=== PATIENT | male | born 1995 | race Caucasian/White ===

== ENCOUNTER 2017-06-21 20:54 | Emergency (ER) | payer SELFPAY ==
[2017-06-21 21:04] VITALS: RESP 18
--- NOTE | 2017-06-21 21:34 | ED ---
General Adult HPI - General Chief complaint: Recheck/Abnormal Lab/Rx Stated complaint: rib pain Time Seen by Provider: 06/21/17 21:24 Source: patient Mode of arrival: ambulatory Limitations: no limitations - History of Present Illness Initial comments: 21-year-old male patient presented to emergency room in [place] [facility] complains of left rib pain and cough. Patient states that he has had a cough since last Tuesday. States that he was coughing up some white sputum. States that the rib pain also started on Tuesday. States that the pain is worse when he takes a deep breath, moves, or presses on the area. He states at rest the pain has lessened but does not completely go away. He denies any fever, chills, chest pain, shortness of breath, abdominal pain, nausea, vomiting, constipation, diarrhea, hematuria, dysuria, urinary urgency or frequency. Denies any rib injury or trauma. - Related Data Previous Rx's Medication Instructions Recorded Benzonatate [Tessalon Perles] 100 mg PO TID PRN #15 cap 06/21/17 Ibuprofen [Motrin] 600 mg PO Q6HR PRN #20 tab 06/21/17 Allergies Allergy/AdvReac Type Severity Reaction Status Date / Time No Known Allergies Allergy Verified 06/21/17 21:50 Review of Systems ROS Statement: Those systems with pertinent positive or pertinent negative responses have been documented in the HPI. ROS Other: All systems not noted in ROS Statement are negative. Past Medical History Past Medical History: No Reported History Additional Past Medical History / Comment(s): seizure x1 after taking drugs in 2012. no follow up History of Any Multi-Drug Resistant Organisms: None Reported Past Surgical History: Appendectomy, Orthopedic Surgery Additional Past Surgical History / Comment(s): rt hand 2013 Past Anesthesia/Blood Transfusion Reactions: No Reported Reaction Past Psychological History: No Psychological Hx Reported Smoking Status: Current every day smoker Past Alcohol Use History: Occasional Past Drug Use History: None Reported - Past Family History Mother Family Medical History: No Reported History General Exam Limitations: no limitations General appearance: alert, in no apparent distress Head exam: Present: atraumatic, normocephalic, normal inspection Eye exam: Present: normal appearance, PERRL, EOMI. Absent: scleral icterus, conjunctival injection, periorbital swelling ENT exam: Present: normal exam, mucous membranes moist Neck exam: Present: normal inspection. Absent: tenderness, meningismus, lymphadenopathy Respiratory exam: Present: normal lung sounds bilaterally, chest wall tenderness (Over the seventh and eighth ribs at the costo chondral angle.). Absent: respiratory distress, wheezes, rales, rhonchi, stridor, accessory muscle use Cardiovascular Exam: Present: regular rate, normal rhythm, normal heart sounds. Absent: systolic murmur, diastolic murmur, rubs, gallop, clicks GI/Abdominal exam: Present: soft, normal bowel sounds. Absent: distended, tenderness, guarding, rebound, rigid, organomegaly, mass Extremities exam: Present: normal inspection, full ROM, normal capillary refill. Absent: tenderness, pedal edema, joint swelling, calf tenderness Back exam: Present: normal inspection Neurological exam: Present: alert, oriented X3, CN II-XII intact Psychiatric exam: Present: normal affect, normal mood Skin exam: Present: warm, dry, intact, normal color, other (Superficial scratch- like abrasions noted over chest wall.). Absent: rash Course Vital Signs 06/21/17 21:01 Temperature 96.3 F L Pulse Rate 75 Respiratory 18 Rate Blood Pressure 138/84 O2 Sat by Pulse 99 Oximetry Medical Decision Making - Medical Decision Making 21-year-old male patient presents to emergency department today for complaints of left lower rib pain and tenderness as well as cough. There is no injury however due to the cough chest x-ray was obtained and showed no acute cardiopulmonary process and no displaced rib fractures. This all at this time pain is costochondral in nature. Patient will be given a prescriptive or ibuprofen for the pain. He will also be given an antitussive for the cough. Patient instructed to follow up this primary care physician a 1-2 days for recheck. Instructed to return for any new, worsening, or concerning symptoms. - Radiology Data Radiology results: report reviewed, image reviewed X-ray ribs with PA chest x-ray shows no focal airspace opacity, pleural effusion , or pneumothorax. The cardiac silhouette size is within normal limits. No displaced wrist fracture. The osseous structures are intact. Impression by Dr. Cooney shows no acute cardiopulmonary process. No displaced fractures. Disposition Clinical Impression: Rib pain, Costochondritis Disposition: HOME SELF-CARE Condition: Good Instructions: Costochondritis (ED) Additional Instructions: Use ibuprofen for pain control. Apply heat or ice to the area as is comfortable. Take urtication for cough. Follow up with primary care physician 1-2 days for recheck. Return for any new, worsening, or concerning symptoms. Prescriptions: Benzonatate [Tessalon Perles] 100 mg PO TID PRN #15 cap PRN Reason: Cough Ibuprofen [Motrin] 600 mg PO Q6HR PRN #20 tab PRN Reason: Pain Referrals: None,Stated [Primary Care Provider] - 1-2 days Time of Disposition: 22:01
--- NOTE | 2017-06-21 21:56 | XR ---
EXAMINATION TYPE: XR ribs LT w pa chest xray DATE OF EXAM: 06/21/2017 CLINICAL HISTORY: Left rib pain. TECHNIQUE: Single frontal view of the chest is obtained. 2 views of the left ribs were also obtained. COMPARISON: None FINDINGS: There is no focal air space opacity, pleural effusion, or pneumothorax seen. The cardiac silhouette size is within normal limits. No displaced rib fracture. The osseous structures are intac t. IMPRESSION: No acute cardiopulmonary process. No displaced rib fracture.
[2017-06-21 22:10] VITALS: BP 122/70; PULSE 82; TEMP 96.8
== END 2017-06-21 22:14 | disposition home or self-care (01) ==
LOC: EC 20:54
DX: M94.0 Chondrocostal junction syndrome [Tietze] (principal); S20.319A Abrasion of unspecified front wall of thorax, initial encounter; F17.200 Nicotine dependence, unspecified, uncomplicated
CPT/HCPCS: 99283

== ENCOUNTER 2017-08-02 02:23 | Emergency (ER) | payer OTHER ==
[2017-08-02 02:29] VITALS: BP 140/83; PULSE 53; RESP 18; TEMP 97
--- NOTE | 2017-08-02 02:50 | ED ---
Upper Extremity HPI - General Chief Complaint: Extremity Injury, Upper Stated Complaint: shoulder pain Time Seen by Provider: 08/02/17 02:35 Source: patient, RN notes reviewed Mode of arrival: ambulatory Limitations: no limitations - History of Present Illness Initial Comments: This a 21-year-old male presents emergency Department chief complaint right shoulder pain. 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 Patient states that he's had increased pain since last night after lifting his parts. Patient states that he has pain when he tries looked up his right shoulder. He states he feels clicking and popping. Patient denies any paresthesias. Patient is right-hand dominant and said no prior injuries to his right shoulder. - Related Data Previous Rx's Medication Instructions Recorded Ibuprofen [Motrin] 600 mg PO Q8HR PRN #30 tab 08/02/17 Allergies Allergy/AdvReac Type Severity Reaction Status Date / Time No Known Allergies Allergy Verified 08/02/17 02:30 Review of Systems ROS Statement: Those systems with pertinent positive or pertinent negative responses have been documented in the HPI. ROS Other: All systems not noted in ROS Statement are negative. Past Medical History Past Medical History: No Reported History Additional Past Medical History / Comment(s): seizure x1 after taking drugs in 2012. no follow up History of Any Multi-Drug Resistant Organisms: None Reported Past Surgical History: Appendectomy, Orthopedic Surgery Additional Past Surgical History / Comment(s): rt hand 2013 Past Anesthesia/Blood Transfusion Reactions: No Reported Reaction Past Psychological History: ADD/ADHD, Bipolar, Depression Smoking Status: Current every day smoker Past Alcohol Use History: Occasional Past Drug Use History: None Reported - Past Family History Mother Family Medical History: No Reported History General Exam Limitations: no limitations General appearance: alert, in no apparent distress Respiratory exam: Present: normal lung sounds bilaterally. Absent: respiratory distress, wheezes, rales, rhonchi, stridor Cardiovascular Exam: Present: regular rate, normal rhythm, normal heart sounds. Absent: systolic murmur, diastolic murmur, rubs, gallop, clicks Extremities exam: Present: other (Right shoulder pain with flexion, Maxalt rotation, abduction there is no specific point tenderness. Generalized tenderness of the right shoulder patient's [employer] senior [employer] strength and strength of his right elbow and wrist within normal limits.) Neurological exam: Present: reflexes normal. Absent: motor sensory deficit Skin exam: Present: warm, dry, intact, normal color. Absent: rash Course Vital Signs 08/02/17 02:25 Temperature 97 F L Pulse Rate 53 L Respiratory 18 Rate Blood Pressure 140/83 O2 Sat by Pulse 100 Oximetry Medical Decision Making - Medical Decision Making 21-year-old male presented for right shoulder pain. Patient is right shoulder strain. He'll be prescribed ibuprofen and follow-up with his workman's comp facility. Disposition Clinical Impression: Strain of shoulder Disposition: HOME SELF-CARE Condition: Stable Instructions: Shoulder Sprain (ED) Additional Instructions: Please return to the Emergency Department if symptoms worsen or any other concerns. Prescriptions: Ibuprofen [Motrin] 600 mg PO Q8HR PRN #30 tab PRN Reason: Pain Referrals: None,Stated [Primary Care Provider] - 1-2 days Time of Disposition: 03:09
--- NOTE | 2017-08-02 02:55 | XR ---
EXAM: XR Right Shoulder Complete, 2 or More Views CLINICAL HISTORY: Reason: Pain TECHNIQUE: Two or more views of the right shoulder. COMPARISON: No relevant prior studies available. FINDINGS: Bones/joints: Unremarkable. No acute fracture. No dislocation. Soft tissues: Unremarkable. IMPRESSION: Normal right shoulder x-rays.
== END 2017-08-02 03:19 | disposition home or self-care (01) ==
LOC: EC 02:23
DX: S46.911A Strain of unspecified muscle, fascia and tendon at shoulder and upper arm level, right arm, initial encounter (principal); F17.200 Nicotine dependence, unspecified, uncomplicated; X50.3XXA Overexertion from repetitive movements, initial encounter; Y93.89 Activity, other specified; Y92.69 Other specified industrial and construction area as the place of occurrence of the external cause; Y99.0 Civilian activity done for income or pay
CPT/HCPCS: 99283

== ENCOUNTER → 2017-08-23 | Outpatient (CLI) | payer OTHER ==
--- NOTE | 2017-08-23 14:49 | MR ---
EXAMINATION TYPE: MR shoulder RT wo con DATE OF EXAM: 08/23/2017 2:10 PM COMPARISON: NONE HISTORY: sprain of rt shoulder TECHNIQUE: Multiplanar multispin echo imaging of the right shoulder was performed. FINDINGS: Rotator cuff : There is mild increased signal involving the supraspinatus tendon compatible with mild tendinopathy. There is no evidence for partial or complete tear. Remaining constituents of the rotat or cuff are intact. Bursa: No bursal effusion or thickening is seen. Musculature: There is no muscular tear, contusion, or atrophy. Acromioclavicular joint : Mild lateral downsloping of the chromium with small subacromial spur and mi ld early impingement suggested. Osseous structures : There are no fractures or regions of abnormal bone marrow signal intensity. Long biceps tendon : The biceps tendon is normally situated within the bicipital groove. No complete or partial biceps tendon tear is present. Glenohumeral Joint fluid : There is no glenohumeral joint effusion. Cartilage and Bone : No focal hyaline cartilage defects are noted. No Hill-Sachs, reverse Hill-Sachs, or bony Bankart lesions are seen. Labrum : There are no SLAP or soft tissue Bankart lesions. No paralabral cysts are seen. OTHER FINDINGS : none IMPRESSION: 1. Mild supraspinatus tendinopathy without evidence for partial or complete tear.
== END ==
LOC: RADMRIMAIN 12:45
PROVIDERS: ATTEND Emergency Medicine
DX: M75.91 Shoulder lesion, unspecified, right shoulder (principal)

== ENCOUNTER 2018-02-18 16:27 | Emergency (ER) | payer OTHER ==
[2018-02-18 16:31] VITALS: RESP 18
--- NOTE | 2018-02-18 17:45 | US ---
EXAMINATION TYPE: US scrotum with doppler. Grayscale and color Doppler Duplex imaging performed of t helen scrotum. DATE OF EXAM: 02/18/2018 COMPARISON: NONE CLINICAL HISTORY: Pain. Edema right testicle for 1 year, gradually getting larger. Intermittent right testicle pain EXAM MEASUREMENTS: TESTICLES: Right Testicle: 5.3 x 2.6 x 4.3 cm Left Testicle: 4.7 x 2.0 x 3.3 cm EPIDIDYMIS HEAD: Right Epididymis: 1.2 cm Left Epididymis: 1.2 cm Doppler performed to assess for testicular vascularity; good bilateral color flow and waveforms are s een. There is no evidence of testicular torsion. Presence of hydroceles: fluid collection lateral to right testicle = 4.3cm and medial to left testic le = 1.9cm cystic area right epididymis = 0.6cm There is a 6 mm simple-appearing epididymal cyst on the right. Comparison views to recommend that rosamaria dy show no suspicious skin thickening. IMPRESSION: Small to moderate size right scrotal fluid collection or hydrocele lateral to the testicl e identified on the images saved.
[2018-02-18 18:14] LABS: Appearance,Urine Clear (Clear); Bilirubin,Urine Negative (Negative); Blood,Urine Negative (Negative); Color,Urine Yellow; Glucose,Urine (UA) Negative (Negative); Ketones,Urine Negative (Negative); Leukocyte Esterase,Urine Negative (Negative); Nitrite,Urine Negative (Negative); PH, Urine 6.5 (5.0-8.0); Protein,Urine Trace (Negative); Specific Gravity,Urine 1.021 (1.001-1.035)
--- NOTE | 2018-02-18 19:25 | ED ---
General Adult HPI - General Chief complaint: Urogenital Stated complaint: Swollen testicle Time Seen by Provider: 02/18/18 17:36 Source: patient, RN notes reviewed Mode of arrival: ambulatory Limitations: no limitations - History of Present Illness Initial comments: 22-year-old male presents to the emergency department for a chief complaint of right testicular enlargement. Patient states this has been going on for over a year. Patient states it is really painful. Patient has not seen anyone else for this. Patient has not tried any thing to help with this. He states he is not sure what makes it better or worse. Patient states he has slight right- sided abdominal pain about once a week lasting for only minutes. Patient is currently asymptomatic and has no pain. Patient denies any fevers. Patient denies possibility of STD. Patient denies any urinary symptoms such as burning with urination. Patient denies any other general symptoms. - Related Data Previous Rx's Medication Instructions Recorded Ibuprofen [Motrin] 600 mg PO Q8HR PRN #30 tab 08/02/17 Allergies Allergy/AdvReac Type Severity Reaction Status Date / Time No Known Allergies Allergy Verified 02/18/18 16:31 Review of Systems ROS Statement: Those systems with pertinent positive or pertinent negative responses have been documented in the HPI. ROS Other: All systems not noted in ROS Statement are negative. Past Medical History Past Medical History: No Reported History Additional Past Medical History / Comment(s): seizure x1 after taking drugs in 2012. no follow up History of Any Multi-Drug Resistant Organisms: None Reported Past Surgical History: Appendectomy, Orthopedic Surgery Additional Past Surgical History / Comment(s): rt hand 2013 Past Anesthesia/Blood Transfusion Reactions: No Reported Reaction Past Psychological History: ADD/ADHD, Bipolar, Depression Smoking Status: Current every day smoker Past Alcohol Use History: Rare Past Drug Use History: None Reported - Past Family History Mother Family Medical History: No Reported History General Exam Limitations: no limitations Respiratory exam: Present: normal lung sounds bilaterally. Absent: respiratory distress, wheezes, rales, rhonchi, stridor Cardiovascular Exam: Present: regular rate, normal rhythm, normal heart sounds. Absent: systolic murmur, diastolic murmur, rubs, gallop, clicks GI/Abdominal exam: Present: soft, normal bowel sounds. Absent: distended, tenderness, guarding, rebound, rigid exam: Present: scrotal swelling (Right scrotum is very mildly enlarged. No redness, tenderness, or pitting edema. Testicle is mobile.). Absent: testicular tenderness, urethral discharge, vertical testicular lie Course Vital Signs 02/18/18 02/18/18 16:28 19:29 Temperature 97.6 F 98.2 F Pulse Rate 69 82 Respiratory 18 18 Rate Blood Pressure 153/83 134/80 O2 Sat by Pulse 98 98 Oximetry Medical Decision Making - Medical Decision Making 22-year-old male presents to the emergency department for a chief complaint of testicular enlargement on the right side. Patient states this has been going on for a year. Patient denies any pain currently. Patient states he rarely gets any pain in his abdomen. Patient denies any urinary symptoms or possibility of STD. Scrotal ultrasound shows a small to moderate-sized right scrotal fluid collection or hydrocele lateral to the testicle. Urinalysis was negative. Gonorrhea, chlamydia, and urine culture was sent. Patient was informed he may get a call about this. Patient is to follow up with urologist Dr. Estrada on Tuesday for follow-up studies. This was discussed with him and he agrees to follow up with him. He is to return to the emergency department if he begins to develop any worsening symptoms or abdominal pain. - Lab Data Lab Results 02/18/18 Range/Units 17:52 Urine Color Yellow Urine Appearance Clear (Clear) Urine pH 6.5 (5.0-8.0) Ur Specific [place] 1.021 (1.001-1.035) Urine Protein Trace H (Negative) Urine Glucose (UA) Negative (Negative) Urine Ketones Negative (Negative) Urine Blood Negative (Negative) Urine Nitrite Negative (Negative) Urine Bilirubin Negative (Negative) Urine Urobilinogen 2.0 (<2.0) mg/dL Ur Leukocyte Esterase Negative (Negative) Disposition Clinical Impression: Hydrocele Disposition: HOME SELF-CARE Condition: Good Instructions: Hydrocele (ED) Additional Instructions: Please follow up with urologist in one to 2 days. Please return to the emergency department if symptoms worsen. Referrals: None,Stated [Primary Care Provider] - 1-2 days Tae Cardona MD [STAFF PHYSICIAN] - 1-2 days Time of Disposition: 19:25
[2018-02-18 19:30] VITALS: BP 134/80; PULSE 82; TEMP 98.2
[2018-02-20 15:46] LABS: C. trachomatis,PCR Negative (Neg,Equiv); Chlamydia trachomatis Source Urine
[2018-02-20 15:47] LABS: N. gonorrhoeae,PCR Negative (Neg,Equiv); Neisseria Source Urine
== END 2018-02-18 19:29 | disposition home or self-care (01) ==
LOC: EC 16:27
DX: N43.3 Hydrocele, unspecified (principal); F17.200 Nicotine dependence, unspecified, uncomplicated; Z90.49 Acquired absence of other specified parts of digestive tract
CPT/HCPCS: 76870; 81003; 87086; 87491; 87591; 93975; 99284

== ENCOUNTER 2018-03-12 23:04 | Emergency (ER) | payer OTHER ==
[2018-03-12 23:09] VITALS: RESP 18
[2018-03-12] MEDS ORDERED: KETOROLAC 30 MG/ML 1 ML VIAL IVP STA (23:55)
[2018-03-12] MEDS ORDERED: METOCLOPRAMIDE 5 MG/ML 2 ML VIAL IVP STA (23:55)
[2018-03-12] MEDS ORDERED: diphenhydrAMINE 50 MG/ML 1 ML VIAL IVP STA (23:55)
[2018-03-12] MEDS ORDERED: SODIUM CHLORIDE 0.9% 1,000 ML IV STA (23:55)
--- NOTE | 2018-03-12 23:58 | ED ---
Headache HPI - General Chief Complaint: Headache Stated Complaint: head injury Time Seen by Provider: 03/12/18 23:47 Source: patient, RN notes reviewed Mode of arrival: ambulatory Limitations: no limitations - History of Present Illness Initial Comments: This is a 22-year-old male who presents to the emergency department with chief complaint of headache. Patient states he believes he may have a concussion. He states that 2 days ago he slipped and fell and hit his forehead on his car. He denies passing out. He states that he got up off the ground and immediately felt lightheaded. He states that he also developed a generalized headache that is sharp and throbbing in nature. He also admits to associated nausea. He states that he has been taking Motrin at home with minimal relief. He denies fevers or chills, chest pain or shortness of breath, vomiting, diarrhea or constipation, numbness or tingling. He states that he feels like his eyes are sensitive to light but denies any vision changes. - Related Data Previous Rx's Medication Instructions Recorded Ibuprofen [Motrin] 600 mg PO Q8HR PRN #30 tab 08/02/17 Allergies Allergy/AdvReac Type Severity Reaction Status Date / Time No Known Allergies Allergy Verified 03/12/18 23:09 Review of Systems ROS Statement: Those systems with pertinent positive or pertinent negative responses have been documented in the HPI. ROS Other: All systems not noted in ROS Statement are negative. Past Medical History Past Medical History: No Reported History Additional Past Medical History / Comment(s): seizure x1 after taking drugs in 2013. no follow up History of Any Multi-Drug Resistant Organisms: None Reported Past Surgical History: Appendectomy, Orthopedic Surgery Additional Past Surgical History / Comment(s): rt hand 2013 Past Anesthesia/Blood Transfusion Reactions: No Reported Reaction Past Psychological History: ADD/ADHD, Bipolar, Depression Smoking Status: Current every day smoker Past Alcohol Use History: Occasional Past Drug Use History: None Reported - Past Family History Mother Family Medical History: No Reported History General Exam - General Exam Comments Initial Comments: General: Awake and alert, well-developed; in no apparent distress. Girlfriend is at bedside. Lying comfortably on ED stretcher wearing his sunglasses. HEENT: Head atraumatic, normocephalic. Small contusion noted at mid superior forehead. Pupils are equal, round and reactive to light. Extraocular movements intact. Oropharynx moist without erythema or exudate. Neck: Supple. Normal ROM. Cardiovascular: Regular rate and rhythm. No murmurs, rubs or gallops. Chest symmetrical. Respiratory: Lungs clear to auscultation bilaterally. No wheezes, rales or rhonchi. Normal respiratory effort with no use of accessory muscles. Musculoskeletal: Normal ROM, no tenderness bilateral upper and lower extremities. Ambulating normally. Skin: [place], warm and dry without rashes or lesions. Neurological: Alert and oriented x3. CN II-XII grossly intact. Speech is fluent and answers are appropriate. No focal neuro deficits. Rapid alternating movements normal. Finger-nose testing normal. Heel to toe gait is normal. Romberg negative. Psychiatric: Normal mood and affect. No overt signs of depression or anxiety noted. Limitations: no limitations Course Vital Signs 03/12/18 23:07 Temperature 98.3 F Pulse Rate 61 Respiratory 18 Rate Blood Pressure 124/74 O2 Sat by Pulse 99 Oximetry Medical Decision Making - Medical Decision Making This is a 22-year-old male who presented to the emergency department for evaluation of headache. Patient was concerned for concussion as he slipped and fell 2 days ago and hit his forehead on his car. Computed tomography scan was obtained and revealed no acute abnormalities. Patient was given IV fluids and headache cocktail. On reexamination, patient states that his symptoms have improved. Vital signs are stable and he is in no acute distress. He will be discharged home at this time. Return parameters were discussed. Recommended following up with primary care provider within 1-2 days. Patient is in agreement with plan and voices understanding. All questions were answered. - Radiology Data Radiology results: report reviewed CT brain without contrast conclusion: Negative computed tomography scan of the brain. There is clearing right maxillary sinusitis compared to old exam. Disposition Clinical Impression: Headache Disposition: HOME SELF-CARE Condition: Good Instructions: Acute Headache (ED), Head Injury (ED) Additional Instructions: Please follow up with primary care provider within 1-2 days. Return to emergency department if symptoms should worsen or any concerns arise. Is patient prescribed a controlled substance at d/c from ED?: No Referrals: None,Stated [Primary Care Provider] - 1-2 days Saul Jensen MD [STAFF PHYSICIAN] - 1-2 days Time of Disposition: 01:02
--- NOTE | 2018-03-13 00:50 | CT ---
EXAMINATION TYPE: CT brain wo con DATE OF EXAM: 03/13/2018 COMPARISON: 09/06/2013 HISTORY: Headache, dizziness CT DLP: 1103.20 mGycm. Automated Exposure Control for Dose Reduction was Utilized. TECHNIQUE: CT scan of the head is performed without contrast. FINDINGS: Ventricles and sulci appear normal. There is no mass effect nor midline shift. There is no sign of intracranial hemorrhage. The calvarium is intact. Sinuses appear normal. The remainder of exa m is unremarkable. CONCLUSION: Negative CT scan of the brain. There is clearing of right maxillary sinusitis compared to old exam.
[2018-03-13 01:09] VITALS: BP 130/80; PULSE 71; TEMP 98.6
== END 2018-03-13 01:09 | disposition home or self-care (01) ==
LOC: EC 23:04
DX: S00.83XA Contusion of other part of head, initial encounter (principal); F17.200 Nicotine dependence, unspecified, uncomplicated; W01.198A Fall on same level from slipping, tripping and stumbling with subsequent striking against other object, initial encounter
CPT/HCPCS: 70450; 99284; 96374; 96375 ×2; 96361; J1200; J2765; J1885

== ENCOUNTER 2018-03-16 04:51 | Emergency (ER) | payer OTHER ==
[2018-03-16 05:07] VITALS: TEMP 97
[2018-03-16] MEDS ORDERED: ACETAMINOPHEN IV (For NPO) 1,000 MG in EMPTY BAG 1 BAG IVPB ONE (05:26)
[2018-03-16] MEDS ORDERED: METOCLOPRAMIDE 5 MG/ML 2 ML VIAL IVP STA (05:26)
[2018-03-16] MEDS ORDERED: SODIUM CHLORIDE 0.9% 1,000 ML IV STA (05:27)
--- NOTE | 2018-03-16 05:29 | ED ---
General Adult HPI - General Chief complaint: Headache Stated complaint: Headache Time Seen by Provider: 03/16/18 05:18 Source: patient, RN notes reviewed Mode of arrival: ambulatory Limitations: no limitations - History of Present Illness Initial comments: Patient is a pleasant 22-year-old male presenting to the emergency Department with headache. Patient dates he tripped and struck his head on his car approximately 6 days ago. Patient has had headaches since that time. Patient has had nausea and some dry heaves. Patient has photophobia and phonophobia. No history of chronic headaches. Patient was in the ER several days ago however has continued symptoms. - Related Data Previous Rx's Medication Instructions Recorded Ibuprofen [Motrin] 600 mg PO Q8HR PRN #30 tab 08/02/17 Allergies Allergy/AdvReac Type Severity Reaction Status Date / Time No Known Allergies Allergy Verified 03/12/18 23:09 Review of Systems ROS Statement: Those systems with pertinent positive or pertinent negative responses have been documented in the HPI. ROS Other: All systems not noted in ROS Statement are negative. Constitutional: Denies: fever Eyes: Denies: eye pain ENT: Denies: ear pain Respiratory: Denies: cough Cardiovascular: Denies: chest pain Endocrine: Denies: fatigue Gastrointestinal: Reports: nausea. Denies: abdominal pain Genitourinary: Denies: dysuria Musculoskeletal: Denies: back pain Skin: Denies: rash Neurological: Reports: headache. Denies: weakness Past Medical History Past Medical History: No Reported History Additional Past Medical History / Comment(s): seizure x1 after taking drugs in 2012. no follow up History of Any Multi-Drug Resistant Organisms: None Reported Past Surgical History: Appendectomy, Orthopedic Surgery Additional Past Surgical History / Comment(s): rt hand 2013 Past Anesthesia/Blood Transfusion Reactions: No Reported Reaction Past Psychological History: ADD/ADHD, Anxiety, Bipolar, Depression Smoking Status: Current every day smoker Past Alcohol Use History: Occasional Past Drug Use History: None Reported - Past Family History Mother Family Medical History: No Reported History General Exam Limitations: no limitations General appearance: alert, in no apparent distress Head exam: Present: atraumatic Eye exam: Present: normal appearance, PERRL, EOMI. Absent: nystagmus ENT exam: Present: normal oropharynx Neck exam: Present: normal inspection. Absent: tenderness Respiratory exam: Present: normal lung sounds bilaterally Cardiovascular Exam: Present: regular rate, normal rhythm GI/Abdominal exam: Present: soft. Absent: tenderness Extremities exam: Present: normal inspection Neurological exam: Present: alert, CN II-XII intact. Absent: motor sensory deficit Expanded Neurological exam: Present: protecting the airway Cranial nerves: EOM's Intact: Normal, Facial Sensation: Normal Sensory exam: Upper Extremity Light Touch: Normal, Lower Extremity Light Touch: Normal Motor strength exam: RUE: 5, LUE: 5, RLE: 5, LLE: 5 Eye Response: (4) open spontaneously Motor Response: (6) obeys commands Verbal Response: (5) oriented Psychiatric exam: Present: normal affect, normal mood Skin exam: Present: normal color Course Vital Signs 03/16/18 03/16/18 05:04 06:26 Temperature 97.0 F L Pulse Rate 62 62 Respiratory 16 16 Rate Blood Pressure 151/94 100/55 O2 Sat by Pulse 100 99 Oximetry Medical Decision Making - Medical Decision Making Patient reevaluated and resting comfortably in bed. Patient is sleeping and easily arousable. Patient updated on results and need for follow-up. - Radiology Data Radiology results: report reviewed (Computed tomography scan the brain reveals no acute process) Disposition Clinical Impression: Postconcussion syndrome Disposition: HOME SELF-CARE Condition: Stable Instructions: Acute Headache (ED), Concussion (ED) Additional Instructions: please follow-up with primary care physician as well as neurologist in the next day or 2 for recheck. Return for weakness, change in mental status, fevers, worsening symptoms or other concerns. Is patient prescribed a controlled substance at d/c from ED?: No Referrals: July Kahn MD [STAFF PHYSICIAN] - 1-2 days Yusra Varghese MD [REFERRING] - 1-2 days Time of Disposition: 06:54
--- NOTE | 2018-03-16 06:14 | CT ---
EXAM: CT Head Without Intravenous Contrast CLINICAL HISTORY: trauma TECHNIQUE: Axial computed tomography images of the head/brain without intravenous contrast. DLP is 1072.30 mGy-cm. This CT exam was performed using one or more of the following dose reduction techniques: automated exposure control, adjustment of the mA and/or kV according to patient size, and/or use of iterative reconstruction technique. COMPARISON: 03/13/18 FINDINGS: Brain: No hemorrhage. No mass effect. Moore white junction preserved. Ventricles: Age appropriate Bones/joints: No skull fracture. Sinuses: Well aerated as visualized. Mastoid air cells: Well aerated as visualized. IMPRESSION: No acute intracranial findings
[2018-03-16 06:59] VITALS: BP 109/71; PULSE 49; RESP 17
== END 2018-03-16 07:06 | disposition home or self-care (01) ==
LOC: EC 04:51
DX: F07.81 Postconcussional syndrome (principal); R11.2 Nausea with vomiting, unspecified; F17.200 Nicotine dependence, unspecified, uncomplicated; W18.49XA Other slipping, tripping and stumbling without falling, initial encounter
CPT/HCPCS: 99284; 96365; 96375; 70450; J2765; J0131

== ENCOUNTER 2018-07-04 07:08 | Emergency (ER) | payer OTHER ==
[2018-07-04 07:28] VITALS: BP 137/91; PULSE 67; RESP 16; TEMP 98.3
--- NOTE | 2018-07-04 07:40 | ED ---
Lower Extremity Injury HPI - General Chief Complaint: Extremity Injury, Lower Stated Complaint: Foot pain/swelling Time Seen by Provider: 07/04/18 07:30 Source: patient, RN notes reviewed Mode of arrival: ambulatory Limitations: no limitations - History of Present Illness Initial Comments: 22-year-old male presents emergency Department chief complaint of right foot pain. Patient states he remembers bumping on something at work states that he worked a shift and was more painful when he got home. Patient pressed on his foot on the lateral aspect and felt pain. Patient states he feels that there is a bump. Patient denies any numbness or tingling no prior fractures. Denies any ankle pain. Denies any bruising or swelling. - Related Data Previous Rx's Medication Instructions Recorded RX: Ibuprofen [Motrin] 600 mg PO Q8HR PRN #30 tab 08/02/17 RX: Ibuprofen [Motrin] 600 mg PO Q8HR PRN #30 tab 07/04/18 Allergies Allergy/AdvReac Type Severity Reaction Status Date / Time red 40 Allergy Anaphylaxis Uncoded 07/04/18 07:29 Review of Systems ROS Statement: Those systems with pertinent positive or pertinent negative responses have been documented in the HPI. ROS Other: All systems not noted in ROS Statement are negative. Past Medical History Past Medical History: No Reported History Additional Past Medical History / Comment(s): seizure x1 after taking drugs in 2012. no follow up History of Any Multi-Drug Resistant Organisms: None Reported Past Surgical History: Appendectomy, Orthopedic Surgery Additional Past Surgical History / Comment(s): rt hand 2013 Past Anesthesia/Blood Transfusion Reactions: No Reported Reaction Past Psychological History: ADD/ADHD, Anxiety, Bipolar, Depression, Schizophrenia Smoking Status: Current every day smoker Past Alcohol Use History: Occasional Past Drug Use History: None Reported - Past Family History Mother Family Medical History: No Reported History General Exam Limitations: no limitations General appearance: alert, in no apparent distress Head exam: Present: atraumatic, normocephalic, normal inspection Respiratory exam: Present: normal lung sounds bilaterally. Absent: respiratory distress, wheezes, rales, rhonchi, stridor Cardiovascular Exam: Present: regular rate, normal rhythm, normal heart sounds. Absent: systolic murmur, diastolic murmur, rubs, gallop, clicks Extremities exam: Present: other (Right foot there is tenderness over the head of the fifth metatarsal, no obvious swelling no ecchymosis neurovascular intact there is no ankle tenderness) Skin exam: Present: warm, dry, intact, normal color. Absent: rash Course Vital Signs 07/04/18 07:25 Temperature 98.3 F Pulse Rate 67 Respiratory 16 Rate Blood Pressure 137/91 O2 Sat by Pulse 100 Oximetry Medical Decision Making - Medical Decision Making 22-year-old male presented for right foot pain. There is no acute fracture of the fifth metatarsal. There was concern about possible fracture of the first digit though patient has no reported pain and no tenderness. Patient has a right foot contusion. We did discuss if no improvement in one week to have repeat x-rays return parameters were discussed. Disposition Clinical Impression: Contusion of right foot Disposition: HOME SELF-CARE Condition: Stable Instructions: Foot Contusion (ED) Additional Instructions: Please return to the Emergency Department if symptoms worsen or any other concerns. Prescriptions: RX: Ibuprofen [Motrin] 600 mg PO Q8HR PRN #30 tab PRN Reason: Pain Is patient prescribed a controlled substance at d/c from ED?: No Referrals: None,Stated [Primary Care Provider] - 1-2 days Time of Disposition: 08:07
--- NOTE | 2018-07-04 08:03 | XR ---
Right foot : Right foot pain, trauma 3 views of the right foot Bone mineralization, joint spaces and alignment are maintained with exception of questionable linear lucency through the proximal aspect of the distal phalanx of the first digit of the right foot seen b est on the lateral exam inferiorly. IMPRESSION: No dislocation. Correlate for point tenderness first digit, difficult to exclude nondispl aced fracture. Follow-up as indicated for persistent symptoms.
== END 2018-07-04 08:20 | disposition home or self-care (01) ==
LOC: EC 07:08
DX: S90.31XA Contusion of right foot, initial encounter (principal); F17.200 Nicotine dependence, unspecified, uncomplicated; Z91.09 Other allergy status, other than to drugs and biological substances; W22.8XXA Striking against or struck by other objects, initial encounter; Y92.89 Other specified places as the place of occurrence of the external cause
CPT/HCPCS: 99283

== ENCOUNTER 2018-08-03 00:54 | Emergency (ER) | payer OTHER ==
[2018-08-03 00:58] VITALS: RESP 18; TEMP 97.7
--- NOTE | 2018-08-03 01:21 | XR ---
EXAMINATION TYPE: XR ribs LT w pa chest xray DATE OF EXAM: 08/03/2018 COMPARISON: 06/21/2017 HISTORY: Rib pain. Chest pain TECHNIQUE: 5 views FINDINGS: Heart and mediastinum are normal. Lungs are clear. There is no sign of pleural effusion or pneumothorax. The left ribs appear intact. IMPRESSION: Normal chest. Normal left ribs. No change.
[2018-08-03] MEDS ORDERED: IBUPROFEN 600 MG TAB PO STA (01:31)
--- NOTE | 2018-08-03 01:31 | ED ---
Chest Pain HPI - General Chief Complaint: Chest Pain Stated Complaint: RIB PAIN Time Seen by Provider: 08/03/18 01:23 Source: patient, RN notes reviewed Mode of arrival: ambulatory Limitations: no limitations - History of Present Illness Initial Comments: 22-year-old male presents emergency Department chief complaint of left-sided rib pain. Patient states started 3-4 days ago after sneezing. Patient states that it hurts to twist and bend or take a deep breath. He denies any shortness of breath. He has not taken any Tylenol or Motrin. Patient states that he's had no prior rib fractures denies any abdominal pain including nausea patient. - Related Data Home Medications Medication Instructions Recorded Confirmed Ibuprofen [Motrin Ib] 200 - 400 mg PO Q6H PRN 07/04/18 07/04/18 Previous Rx's Medication Instructions Recorded Emtricitabine/Tenofovir (Tdf) 1 tab PO DAILY 20 Days #20 tab 07/23/18 [Truvada 200 mg-300 mg Tablet] Raltegravir Potassium [Isentress] 400 mg PO Q12H 25 Days #50 tab 07/23/18 Ibuprofen [Motrin] 600 mg PO Q8HR PRN #30 tab 08/03/18 Allergies Allergy/AdvReac Type Severity Reaction Status Date / Time red 40 Allergy Anaphylaxis Uncoded 08/03/18 00:58 Review of Systems ROS Statement: Those systems with pertinent positive or pertinent negative responses have been documented in the HPI. ROS Other: All systems not noted in ROS Statement are negative. Past Medical History Past Medical History: No Reported History Additional Past Medical History / Comment(s): seizure x1 after taking drugs in 2012. no follow up, History of Any Multi-Drug Resistant Organisms: None Reported Past Surgical History: Appendectomy, Orthopedic Surgery Additional Past Surgical History / Comment(s): rt hand 2012, Past Anesthesia/Blood Transfusion Reactions: No Reported Reaction Past Psychological History: ADD/ADHD, Anxiety, Bipolar, Depression, Schizophrenia Smoking Status: Current every day smoker Past Alcohol Use History: Occasional Past Drug Use History: None Reported - Past Family History Mother Family Medical History: No Reported History General Exam Limitations: no limitations General appearance: alert, in no apparent distress Neck exam: Present: full ROM Respiratory exam: Present: normal lung sounds bilaterally, chest wall tenderness (Moderate left anterior lateral lower ribs). Absent: respiratory distress, wheezes, rales, rhonchi, stridor Cardiovascular Exam: Present: regular rate, normal rhythm, normal heart sounds. Absent: systolic murmur, diastolic murmur, rubs, gallop, clicks GI/Abdominal exam: Present: soft, normal bowel sounds. Absent: distended, tenderness, guarding, rebound, rigid Course Vital Signs 08/03/18 00:55 Temperature 97.7 F Pulse Rate 72 Respiratory 18 Rate Blood Pressure 155/90 O2 Sat by Pulse 100 Oximetry Chest Pain MDM - MDM 22-year-old male presented for left-sided rib. Patient had x-rays which showed no acute fracture or pneumothorax. Patient has strain of his chest wall, rib region. Patient started on anti-inflammatories. Return parameters discussed. Disposition Clinical Impression: Rib pain on left side, Chest wall muscle strain Disposition: HOME SELF-CARE Condition: Stable Instructions: Chest Pain (ED) Additional Instructions: Please return to the Emergency Department if symptoms worsen or any other concerns. Prescriptions: Ibuprofen [Motrin] 600 mg PO Q8HR PRN #30 tab PRN Reason: Pain Is patient prescribed a controlled substance at d/c from ED?: No Referrals: None,Stated [Primary Care Provider] - 1-2 days Time of Disposition: 01:31
[2018-08-03 01:56] VITALS: BP 146/61; PULSE 64
== END 2018-08-03 02:00 | disposition home or self-care (01) ==
LOC: EC 00:54
DX: S29.011A Strain of muscle and tendon of front wall of thorax, initial encounter (principal); F17.200 Nicotine dependence, unspecified, uncomplicated; Z91.048 Other nonmedicinal substance allergy status; X58.XXXA Exposure to other specified factors, initial encounter
CPT/HCPCS: 99284

== ENCOUNTER 2018-12-12 10:12 | Emergency (ER) | payer OTHER ==
[2018-12-12 10:25] VITALS: RESP 18; TEMP 98
--- NOTE | 2018-12-12 11:44 | XR ---
EXAMINATION TYPE: XR shoulder complete LT DATE OF EXAM: 12/12/2018 CLINICAL HISTORY: Pain since falling down injury last night. TECHNIQUE: Three views of the left shoulder are obtained. COMPARISON: None. FINDINGS: There is no acute fracture/dislocation evident in the left shoulder. The acromioclavicula r and glenohumeral joint spaces appear within normal limits. The visualized ribs are intact and unre markable. IMPRESSION: There is no acute fracture or dislocation in the left shoulder.
--- NOTE | 2018-12-12 11:45 | XR ---
EXAMINATION TYPE: XR lumbar spine 2 or 3V DATE OF EXAM: 12/12/2018 CLINICAL HISTORY: Pain since falling injury last night. TECHNIQUE: Frontal and lateral images of the lumbar spine are obtained. COMPARISON: Lumbar spine x-ray July 14, 2014 FINDINGS: There are 4 lumbar type vertebral bodies redemonstrated. The lumbar spine shows satisfact ory alignment without evidence of acute fracture or dislocation. Vertebral body heights and disk spac e heights are within normal limits. Surgical clips overlie the superior right sacroiliac joint simila r to prior. IMPRESSION: No acute fracture or dislocation is seen in the lumbar spine. No significant change from prior.
--- NOTE | 2018-12-12 11:47 | XR ---
EXAMINATION TYPE: XR cervical spine comp DATE OF EXAM: 12/12/2018 COMPARISON: NONE HISTORY: Pain TECHNIQUE: Four views are submitted. FINDINGS: The odontoid is intact. There are no compression deformities. The prevertebral soft tissue structur es are within normal limits. Small cervical rib noted IMPRESSION: 1. No acute process. If symptoms persist consider CT scan.
--- NOTE | 2018-12-12 11:54 | ED ---
Upper Extremity HPI - General Chief Complaint: Extremity Injury, Upper Stated Complaint: fall, neck and shoulder pain Time Seen by Provider: 12/12/18 10:34 Source: patient Mode of arrival: ambulatory Limitations: no limitations - History of Present Illness Initial Comments: 23-year-old male presents today today for chief complaint of left-sided neck pain and left shoulder pain. Patient states yesterday evening he was walking when he fell on ice. Patient states he will see found his left shoulder. Patient states he awoke with left shoulder, left-sided neck pain and low back pain. Patient states he is able to ambulate without difficulty denies any urinary retention or loss of bowel bladder control. Patient denies a most weekends or loss sensation of lower extremity. Patient denies any head trauma, denies loss of conscious. Patient denies any headache visual changes diplopia, dizziness, nausea or vomiting. Patient denies any hematoma or injury to the scalp. Patient denies any decreased range motion left shoulder. Patient does admit to increased pain in the left shoulder with range of motion. Patient states he does feel occasional tingling in his first 2 digits of his fingers. Remainder of ROS negative, patient denies any recent fever, chills, shortness of breath, chest pain, abdominal pain, nausea or vomiting, tingling, dysuria or hematuria, constipation or diarrhea, headaches or visual changes, or any other complaints. - Related Data Previous Rx's Medication Instructions Recorded Cyclobenzaprine [Flexeril] 10 mg PO HS 4 Days #4 tab 12/12/18 Allergies Allergy/AdvReac Type Severity Reaction Status Date / Time red 40 Allergy Anaphylaxis Uncoded 12/12/18 10:25 Review of Systems ROS Statement: Those systems with pertinent positive or pertinent negative responses have been documented in the HPI. ROS Other: All systems not noted in ROS Statement are negative. Past Medical History Past Medical History: No Reported History Additional Past Medical History / Comment(s): seizure x1 after taking drugs in 2012. no follow up, History of Any Multi-Drug Resistant Organisms: None Reported Past Surgical History: Appendectomy, Orthopedic Surgery Additional Past Surgical History / Comment(s): rt hand 2012, Past Anesthesia/Blood Transfusion Reactions: No Reported Reaction Past Psychological History: ADD/ADHD, Anxiety, Bipolar, Depression, Schizophrenia Smoking Status: Current every day smoker Past Alcohol Use History: Occasional Past Drug Use History: None Reported - Past Family History Mother Family Medical History: No Reported History General Exam - General Exam Comments Initial Comments: General: The patient is awake and alert, in no distress, and does not appear acutely ill. Eye: Pupils are equal, round and reactive to light, extra-ocular movements are intact. No nystagmus. There is normal conjunctiva bilaterally. No signs of icterus. Ears, nose, mouth and throat: There are moist mucous membranes and no oral lesions. Neck: The neck is supple, there is no tenderness or JVD. Cardiovascular: There is a regular rate and rhythm. No murmur, rub or gallop is appreciated. Respiratory: Lungs are clear to auscultation, respirations are non-labored, breath sounds are equal. No wheezes, stridor, rales, or rhonchi. Gastrointestinal: [Soft, non-distended, non-tender abdomen without masses or organomegaly noted. There is no rebound or guarding present. No CVA tenderness. Bowel sounds are unremarkable.] Musculoskeletal: Normal inspection of the cervical spine as well as the shoulders equal bilaterally. No evidence of soft tissue injury no soft tissue swelling or erythema. No palpable step-off or defect. Patient is able to fully range at the shoulders equal bilaterally this includes internal/external rotation or flexion and extension. Patient states the pain with all range of motion of the left shoulder. Explicitly for flexion. Patient has left-sided paravertebral tenderness of the cervical spine, there is no evidence of midline tenderness. No right-sided palpable paravertebral pain. Patient is able to fully range the cervical spine for flexion extension and lateral flexion and rotation. Patient has full sensation of the upper extremities this is equal when compared bilaterally. No badge anesthesia. Patient is able to make the okay fingers crossed thumbs-up and extend at the wrist, no evidence of wrist drop. Ulnar median and radial nerve appear intact. Radial nerves +2 equal bilaterally. +2 d dorsalis pedis pulses. Full range of motion at the hips knees and ankles bilaterally. Sensation intact in lower extremities including the saddle region. There is no midline tenderness to palpation of the lumbar spine. There is left-sided paravertebral tenderness. No right-sided paravertebral tenderness. There is minimal muscle spasm of the cervical spine. full spasm palpated of the lumbar. Neurological: A&O x 3. CN II-XII intact, There are no obvious motor or sensory deficits. Coordination appears grossly intact. Speech is normal. Skin: Skin is warm and dry and no rashes or lesions are noted. Psychiatric: Cooperative, appropriate mood & affect, normal judgment. Limitations: no limitations Course Vital Signs 12/12/18 12/12/18 10:22 12:21 Temperature 98 F 98 F Pulse Rate 78 70 Respiratory 18 18 Rate Blood Pressure 133/88 127/84 O2 Sat by Pulse 100 99 Oximetry Medical Decision Making - Medical Decision Making Physical exam findings concerning for muscle spasms some and muscle tension. I do have low suspicion for osseous injury however with history of trauma and fall with complaints of pain imaging studies were obtained. Cervical spine negative for acute osseous process. No midline tenderness palpation of the cervical spine, negative spurlings test. Patient has no sensation deficits on exam or muscle weakness of the upper extremities. Patient neurovascular intact. Lumbar spine exam revealed left paravertebral tenderness. Full strength lower extremities. No sensation deficits. No evidence of myoclonus or fasciculations. Shoulder exam unremarkable aside from pain with range of motion. X-ray negative for acute process. No obvious injury to the ulnar median or radial nerve. Patient given ibuprofen for pain management. At this time due for patient is stable for discharge was treatment for muscle strains. This includes the cervical, left shoulder and lumbar spine strain. Patient is to follow-up with orthopedic surgery if symptoms persist. Return primary discussed at length the patient who verbalized understanding. Patient discharged so condition appearing well after discussing the case with Dr. Benton reviewed radiology reads. Disposition Clinical Impression: Neck strain, Shoulder strain, Low back strain Disposition: HOME SELF-CARE Condition: Good Instructions (If sedation given, give patient instructions): Muscle Strain (ED) Additional Instructions: Please use medication as discussed, no driving working, drinking alcohol, operating machinery,using benzodiazepines while taking Flexeril. Please follow- up with family doctor in the next 2 days. Please return to emergency room if the symptoms increase or worsen or for any other concerns, as discussed. Prescriptions: Cyclobenzaprine [Flexeril] 10 mg PO HS 4 Days #4 tab Is patient prescribed a controlled substance at d/c from ED?: No Referrals: Raymundo Linton MD [Primary Care Provider] - 1-2 days Ben Knowles MD [STAFF PHYSICIAN] - 1-2 days Time of Disposition: 11:53
[2018-12-12] MEDS ORDERED: IBUPROFEN 800 MG TAB PO STA (11:55)
[2018-12-12 12:22] VITALS: BP 127/84; PULSE 70
== END 2018-12-12 12:21 | disposition home or self-care (01) ==
LOC: EC 10:12
DX: S46.912A Strain of unspecified muscle, fascia and tendon at shoulder and upper arm level, left arm, initial encounter (principal); S16.1XXA Strain of muscle, fascia and tendon at neck level, initial encounter; S39.012A Strain of muscle, fascia and tendon of lower back, initial encounter; Z91.02 Food additives allergy status; F17.200 Nicotine dependence, unspecified, uncomplicated; W00.0XXA Fall on same level due to ice and snow, initial encounter; Y93.01 Activity, walking, marching and hiking
CPT/HCPCS: 72050; 72100; 99283

== ENCOUNTER 2019-10-07 16:08 | Emergency (ER) | payer OTHER ==
[2019-10-07 16:22] VITALS: RESP 18
[2019-10-07] MEDS ORDERED: cefTRIAXone IN SWFI 1,000 MG/10 ML SYRINGE IVP STA (16:42)
[2019-10-07] MEDS ORDERED: SODIUM CHLORIDE 0.9% 1,000 ML IV STA (16:42)
--- NOTE | 2019-10-07 17:08 | XR ---
Right hand HISTORY: Fever, infection 3 views of the right hand Correlation to prior exam 07/05/2015 Postop changes at the fourth and fifth metacarpals are again noted. There is some lucency present jonn ng the lateral margin of the distal diaphyseal right fourth metacarpal not seen on prior exam as well as a lucency present associated with the distal aspect of the hardware in the fourth metacarpal and distal to the fifth metacarpal hardware. There is cortical thickening at the fourth and fifth metacar pals with associated volar angulation and transverse lucencies consistent with fractures of indetermi brii age. IMPRESSION: Fractures of the fourth and fifth metacarpals, there is associated lucency, correlate for infection.
[2019-10-07] MEDS ORDERED: ACETAMINOPHEN TAB 500 MG TAB PO STA (17:15)
[2019-10-07] MEDS ORDERED: IBUPROFEN 800 MG TAB PO STA (17:15)
[2019-10-07 17:26] VITALS: BP 137/81; PULSE 87
[2019-10-07 17:28] LABS: Basophils # (A) 0.5 k/uL (0-0.2); Basophils % (A) 5 %; Eosinophils # (A) 0.1 k/uL (0-0.7); Eosinophils % (A) 1 %; HCT 43.5 % (39.0-53.0); HGB 15.1 gm/dL (13.0-17.5); Lymphocytes # (A) 1.2 k/uL (1.0-4.8); Lymphocytes % (A) 14 %; MCH 30.4 pg (25.0-35.0); MCHC 34.7 g/dL (31.0-37.0); MCV 87.7 fL (80.0-100.0); Mean Platelet Volume 7.8; Monocytes # (A) 0.9 k/uL (0-1.0); Monocytes % (A) 10 %; Neutrophils # (A) 6.6 k/uL (1.3-7.7); Neutrophils % (A) 73 %; Platelet Count 140 k/uL (150-450); RBC 4.96 m/uL (4.30-5.90); RDW 12.7 % (11.5-15.5)
--- NOTE | 2019-10-07 17:28 | ED ---
General Adult HPI - General Chief complaint: Fever Stated complaint: FEVER Time Seen by Provider: 10/07/19 16:27 Source: patient, RN notes reviewed Mode of arrival: ambulatory Limitations: no limitations - History of Present Illness Initial comments: 44-year-old male presents to the emergency department for a chief complaint of fever. Patient states he has had a fever up to 103 for the past 2 days. He denies cough congestion or sore throat. Denies dysuria. States that in April 08 he had surgery on his hand as he broke it. States he had existing plates and rods in his hand from 2012 that they tried to modify but were unsuccessful. Patient states he started to get symptoms of infection couple months after that. States that 2 weeks ago he was seen by his orthopedic physician in [place] because there was purulent material coming from the area. States that he is supposed to get it scraped out. Patient has no other complaints at this time including shortness of breath, chest pain, abdominal pain, nausea or vomiting, headache, or visual changes. - Related Data Previous Rx's Medication Instructions Recorded Cyclobenzaprine [Flexeril] 10 mg PO HS 4 Days #4 tab 12/12/18 Sulfamethox-Tmp 800-160Mg [Bactrim 1 tab PO Q12HR #20 tab 10/07/19 DS 800-160 mg] Allergies Allergy/AdvReac Type Severity Reaction Status Date / Time red 40 Allergy Anaphylaxis Uncoded 10/07/19 16:22 Review of Systems ROS Statement: Those systems with pertinent positive or pertinent negative responses have been documented in the HPI. ROS Other: All systems not noted in ROS Statement are negative. Past Medical History Past Medical History: No Reported History Additional Past Medical History / Comment(s): seizure x1 after taking drugs in 2012. no follow up, History of Any Multi-Drug Resistant Organisms: None Reported Past Surgical History: Appendectomy, Orthopedic Surgery Additional Past Surgical History / Comment(s): rt hand 2012, Past Anesthesia/Blood Transfusion Reactions: No Reported Reaction Past Psychological History: ADD/ADHD, Anxiety, Bipolar, Depression, Schizophrenia Smoking Status: Current every day smoker Past Alcohol Use History: None Reported Past Drug Use History: None Reported - Past Family History Mother Family Medical History: No Reported History General Exam Limitations: no limitations General appearance: alert, in no apparent distress Head exam: Present: atraumatic, normocephalic, normal inspection Eye exam: Present: normal appearance, PERRL, EOMI. Absent: scleral icterus, conjunctival injection, periorbital swelling ENT exam: Present: normal exam, normal oropharynx, mucous membranes moist, TM's normal bilaterally, normal external ear exam Neck exam: Present: normal inspection, full ROM. Absent: tenderness, meningismus, lymphadenopathy Respiratory exam: Present: normal lung sounds bilaterally. Absent: respiratory distress, wheezes, rales, rhonchi, stridor Cardiovascular Exam: Present: regular rate, normal rhythm, normal heart sounds. Absent: systolic murmur, diastolic murmur, rubs, gallop, clicks GI/Abdominal exam: Present: soft, normal bowel sounds. Absent: distended, tenderness, guarding, rebound, rigid Extremities exam: Present: full ROM (full ROM of all digits), normal capillary refill (cap refill < 2 seconds, radial pulse 2+), other (Disfiguration noted to the right fourth and fifth metacarpals with healing surgical scar.). Absent: tenderness (no tenderness), pedal edema, joint swelling, calf tenderness Neurological exam: Present: alert Course Vital Signs 10/07/19 10/07/19 10/07/19 16:20 16:38 17:25 Temperature 103.1 F H 101.6 F H Pulse Rate 98 87 Respiratory 18 18 Rate Blood Pressure 134/83 137/81 O2 Sat by Pulse 98 98 Oximetry Medical Decision Making - Medical Decision Making Patient presents with a fever of 103 history of fevers at home over the past 2 days. Pt reports he has had drainage from a surgical wound of the right hand. He denies any other symptoms whatsoever. Denies cough congestion sore throat abdominal pain dysuria headache. Exam of the hand is generally unremarkable. There is deformity noted where old fracture is located. CBC shows a normal white blood cell count of 9. CMP is unremarkable. Influenza negative. I did request a urine however patient was unable to void. He is not having any symptoms of urinary tract infection including flank pain, abdominal pain, dysuria so he will not be straight cathed for this. X-ray of the right hand does show fractures of the fourth and fifth metacarpals with associated lucency correlated for infection. I did speak with patient's surgeon Dr. Díaz of [facility] around 6 PM. I discussed with him the fever, x-ray findings and laboratory studies. At this time he recommends oral antibiotics as he is scheduled for surgery to irrigate the area on Tuesday. He also asked me to send operative notes of his previous surgery in 2012 to his office which I did relay to the patient. I requested patient return here if he has any worsening symptoms. Patient was given dose of IV and oral antibiotics here in the emergency department - Lab Data Result diagrams: 10/07/19 17:00 10/07/19 17:00 Lab Results 10/07/19 10/07/19 10/07/19 Range/Units 17:00 17:00 17:00 WBC 9.0 (3.8-10.6) k/uL RBC 4.96 (4.30-5.90) m/uL Hgb 15.1 (13.0-17.5) gm/dL Hct 43.5 (39.0-53.0) % MCV 87.7 (80.0-100.0) fL MCH 30.4 (25.0-35.0) pg MCHC 34.7 (31.0-37.0) g/dL RDW 12.7 (11.5-15.5) % Plt Count 140 L (150-450) k/uL Neutrophils % 73 % Lymphocytes % 14 % Monocytes % 10 % Eosinophils % 1 % Basophils % 5 % Neutrophils # 6.6 (1.3-7.7) k/uL Lymphocytes # 1.2 (1.0-4.8) k/uL Monocytes # 0.9 (0-1.0) k/uL Eosinophils # 0.1 (0-0.7) k/uL Basophils # 0.5 H (0-0.2) k/uL Manual Slide Review Performed Poikilocytosis (manual Present Sodium 139 (137-145) mmol/L Potassium 3.9 (3.5-5.1) mmol/L Chloride 104 (98-107) mmol/L Carbon Dioxide 22 (22-30) mmol/L Anion Gap 13 mmol/L BUN 11 (9-20) mg/dL Creatinine 1.14 (0.66-1.25) mg/dL Est GFR (CKD-EPI)AfAm >90 (>60 ml/min/1.73 sqM) Est GFR (CKD-EPI)NonAf >90 (>60 ml/min/1.73 sqM) Glucose 96 (74-99) mg/dL Plasma Lactic Acid Abe (0.7-2.0) mmol/L Calcium 9.6 (8.4-10.2) mg/dL Total Bilirubin 0.5 (0.2-1.3) mg/dL AST 25 (17-59) U/L ALT 15 L (21-72) U/L Alkaline Phosphatase 76 (38-126) U/L Total Protein 8.0 (6.3-8.2) g/dL Albumin 4.6 (3.5-5.0) g/dL Influenza Type A RNA Not Detected (Not Detectd) Influenza Type B (PCR) Not Detected (Not Detectd) 10/07/19 Range/Units 17:00 WBC (3.8-10.6) k/uL RBC (4.30-5.90) m/uL Hgb (13.0-17.5) gm/dL Hct (39.0-53.0) % MCV (80.0-100.0) fL MCH (25.0-35.0) pg MCHC (31.0-37.0) g/dL RDW (11.5-15.5) % Plt Count (150-450) k/uL Neutrophils % % Lymphocytes % % Monocytes % % Eosinophils % % Basophils % % Neutrophils # (1.3-7.7) k/uL Lymphocytes # (1.0-4.8) k/uL Monocytes # (0-1.0) k/uL Eosinophils # (0-0.7) k/uL Basophils # (0-0.2) k/uL Manual Slide Review Poikilocytosis (manual Sodium (137-145) mmol/L Potassium (3.5-5.1) mmol/L Chloride (98-107) mmol/L Carbon Dioxide (22-30) mmol/L Anion Gap mmol/L BUN (9-20) mg/dL Creatinine (0.66-1.25) mg/dL Est GFR (CKD-EPI)AfAm (>60 ml/min/1.73 sqM) Est GFR (CKD-EPI)NonAf (>60 ml/min/1.73 sqM) Glucose (74-99) mg/dL Plasma Lactic Acid Abe 1.4 (0.7-2.0) mmol/L Calcium (8.4-10.2) mg/dL Total Bilirubin (0.2-1.3) mg/dL AST (17-59) U/L ALT (21-72) U/L Alkaline Phosphatase (38-126) U/L Total Protein (6.3-8.2) g/dL Albumin (3.5-5.0) g/dL Influenza Type A RNA (Not Detectd) Influenza Type B (PCR) (Not Detectd) Disposition Clinical Impression: Infection of hand Disposition: HOME SELF-CARE Condition: Good Instructions (If sedation given, give patient instructions): Fever in Adults (ED) Additional Instructions: Please take Tylenol for pain. He may take this every 4-6 hours. Take Bactrim as directed. This was prescribed to [facility] in [place]. Please send Dr. Díaz's office the operative notes from her previous surgery in 2012 as soon as possible. If you have any worsening symptoms return immediately to the emergency department. Prescriptions: Sulfamethox-Tmp 800-160Mg [Bactrim DS 800-160 mg] 1 tab PO Q12HR #20 tab Is patient prescribed a controlled substance at d/c from ED?: No Referrals: Raymundo Linton MD [Primary Care Provider] - 1-2 days Time of Disposition: 18:19
[2019-10-07 17:30] LABS: ALT 15 U/L (21-72); AST 25 U/L (17-59); African American GFR (CKD) >90 (>60 ml/min/1.73 sqM); Albumin 4.6 g/dL (3.5-5.0); Alkaline Phosphatase 76 U/L (38-126); Anion Gap 13 mmol/L; Blood Urea Nitrogen 11 mg/dL (9-20); Calcium 9.6 mg/dL (8.4-10.2); Carbon Dioxide 22 mmol/L (22-30); Chloride 104 mmol/L (98-107); Glucose 96 mg/dL (74-99); Non-African American GFR(CKD) >90 (>60 ml/min/1.73 sqM); Potassium 3.9 mmol/L (3.5-5.1); Sodium 139 mmol/L (137-145); Total Bilirubin 0.5 mg/dL (0.2-1.3)
[2019-10-07 17:51] LABS: Poikilocytosis (M) Present
[2019-10-07] MEDS ORDERED: SULFAMETH-TMP DS STARTER PACK 2 TAB BTL PO STA (18:14)
[2019-10-07 18:24] VITALS: TEMP 98.9
== END 2019-10-07 18:31 | disposition home or self-care (01) ==
LOC: EC 16:08
DX: L08.9 Local infection of the skin and subcutaneous tissue, unspecified (principal); F17.200 Nicotine dependence, unspecified, uncomplicated; Z91.048 Other nonmedicinal substance allergy status
CPT/HCPCS: 36415; 80053; 83605; 85025; 87040; 87502; 73130; 99283; 96374; 96361; J0696

== ENCOUNTER 2019-10-13 18:46 | Emergency (ER) | payer OTHER ==
[2019-10-13] MEDS ORDERED: SODIUM CHLORIDE 0.9% 1,000 ML IV STA (19:03)
--- NOTE | 2019-10-13 19:04 | ED ---
Chest Pain HPI - General Source: patient Mode of arrival: ambulatory Limitations: no limitations <Tammi Johnson - Last Filed: 10/13/19 23:23> <Kristina Miramontes - Last Filed: 10/16/19 02:30> - General Chief Complaint: Chest Pain Stated Complaint: Chest Pain Post SX Right Hand Time Seen by Provider: 10/13/19 18:54 - History of Present Illness Initial Comments: 24-year-old male presenting today for chief complaint of chest pain. Patient states that he had a right hand surgery after he had infection of hardware from previous hand fracture. Patient states he had the surgery performed tuesday. patient states that he began having chest pain with inspiration he denies upper history symptoms deny fevers denies chest pressure nausea jaw pain and arm pain. Patient states and symptoms persisted today he was concerned blood clot and presents emergency room. patient denies any swelling of the upper extremities or lower extremities denies any history of DVT or pulmonary embolism. She denies any hemoptysis. Remaining review systems negative. (Tammi Johnson) - Related Data Previous Rx's Medication Instructions Recorded Cyclobenzaprine [Flexeril] 10 mg PO HS 4 Days #4 tab 12/12/18 Sulfamethox-Tmp 800-160Mg [Bactrim 1 tab PO Q12HR #20 tab 10/07/19 DS 800-160 mg] Ibuprofen 800 mg PO Q8H PRN 7 Days #21 tablet 10/13/19 Allergies Allergy/AdvReac Type Severity Reaction Status Date / Time red 40 Allergy Anaphylaxis Uncoded 10/13/19 18:48 Review of Systems ROS Other: All systems not noted in ROS Statement are negative. <Tammi Johnson - Last Filed: 10/13/19 23:23> ROS Other: All systems not noted in ROS Statement are negative. <Kristina Miramontes - Last Filed: 10/16/19 02:30> ROS Statement: Those systems with pertinent positive or pertinent negative responses have been documented in the HPI. EKG Findings - EKG Comments: EKG Findings:: Ventricular rate 60 bpm, GA interval 140 ms, QRS duration 96. And, QT/QTC 382/32. Normal sinus early repolarization noted otherwise no acute abnormalities. EKG personally interpreted and reviewed by attending provider Dr. Miramontes <Tammi Johnson - Last Filed: 10/13/19 23:23> Past Medical History Past Medical History: No Reported History Additional Past Medical History / Comment(s): seizure x1 after taking drugs in 2012. no follow up, History of Any Multi-Drug Resistant Organisms: None Reported Past Surgical History: Appendectomy, Orthopedic Surgery Additional Past Surgical History / Comment(s): rt hand 2013, rt hand 2019 Past Anesthesia/Blood Transfusion Reactions: No Reported Reaction Past Psychological History: No Psychological Hx Reported, ADD/ADHD, Anxiety, Bipolar, Depression, Schizophrenia Smoking Status: Former smoker Past Alcohol Use History: None Reported Past Drug Use History: None Reported - Past Family History Mother Family Medical History: No Reported History <Tammi Johnson - Last Filed: 10/13/19 23:23> General Exam Limitations: no limitations <Tammi Johnson - Last Filed: 10/13/19 23:23> - General Exam Comments Initial Comments: General: The patient is awake and alert, in no distress, and does not appear acutely ill. Eye: +3 mm pupils are equal, round and reactive to light, extra-ocular movements are intact. No nystagmus. There is normal conjunctiva bilaterally. No signs of icterus. Ears, nose, mouth and throat: There are moist mucous membranes and no oral lesions. Neck: The neck is supple, there is no tenderness or JVD. Cardiovascular: There is a regular rate and rhythm. No murmur, rub or gallop is appreciated. Respiratory: Lungs are clear to auscultation, respirations are non-labored, concepción ath sounds are equal. No wheezes, stridor, rales, or rhonchi. Gastrointestinal: Soft, non-distended, non-tender abdomen without masses or organomegaly noted. There is no rebound or guarding present. Musculoskeletal: Normal ROM, no tenderness. Strength 5/5. Sensation intact. Pulses equal bilaterally 2+. Neurological: A&O x 3. CN II-XII intact grossly, There are no obvious motor or sensory deficits. Coordination appears grossly intact. Speech is normal. Skin: Skin is warm and dry and no rashes or lesions are noted. NO UE or LE edema/swelling. Incision site, nonerythematous, no warmth, drainage. Psychiatric: Cooperative, appropriate mood & affect, normal judgment. (Tammi Johnson) Course Vital Signs 10/13/19 10/13/19 18:49 22:00 Temperature 97.7 F 98.1 F Pulse Rate 78 74 Respiratory 18 17 Rate Blood Pressure 142/90 127/69 O2 Sat by Pulse 100 98 Oximetry Chest Pain MDM <Tammi Johnson - Last Filed: 10/13/19 23:23> <Kristina Miramontes - Last Filed: 10/16/19 02:30> - MDM 24-year-old male presenting for chest pain. Pleuritic. Recent surgical procedure. No leukocytosis. Chest x-ray clear lungs clear no murmur. EKG no acute findings. Troponin negative although patient's symptoms were not typical. D-dimer within normal limits CTA revealed no evidence of pulmonary embolism. P jorge appears well at this time will treat patient with NSAIDs and have him follow-up with primary care provider patient is agreeable to this care plan discharge at this time he states that his chest pain is feeling better. Discussed case with attending who was agreeable with care plan, (Tammi Johnson) I was available for consultation in the emergency department. The history and physical exam were done by the midlevel provider. I was consulted for this patients care. I reviewed the case with the midlevel provider and based on their presentation of the patient, I agree with the assessment, medical decision making and plan of care as documented. Chart was dictated using [employer] dictation software. Attempts were made to correct any dictation errors however some typographical errors may persist. (Kristina Miramontes) Disposition Is patient prescribed a controlled substance at d/c from ED?: No Time of Disposition: 21:10 <Tammi Johnson - Last Filed: 10/13/19 23:23> <Kristina Miramontes - Last Filed: 10/16/19 02:30> Clinical Impression: Chest pain Disposition: HOME SELF-CARE Condition: Good Instructions (If sedation given, give patient instructions): Chest Pain (ED) Additional Instructions: Please use medication as discussed. Please follow-up with family doctor in the next 2 days.. Please return to emergency room if the symptoms increase or worsen or for any other concerns. Prescriptions: Ibuprofen 800 mg PO Q8H PRN 7 Days #21 tablet PRN Reason: Pain Referrals: Raymundo Linton MD [Primary Care Provider] - 1-2 days
[2019-10-13 19:50] LABS: HGB 14.2 gm/dL (13.0-17.5); MCH 29.8 pg (25.0-35.0); MCHC 33.7 g/dL (31.0-37.0); MCV 88.6 fL (80.0-100.0); Mean Platelet Volume 7.2; Platelet Count 211 k/uL (150-450); RBC 4.74 m/uL (4.30-5.90); RDW 13.1 % (11.5-15.5); WBC 6.5 k/uL (3.8-10.6)
--- NOTE | 2019-10-13 19:54 | XR ---
EXAMINATION TYPE: XR chest 2V DATE OF EXAM: 10/13/2019 COMPARISON: 08/03/2018 HISTORY: Chest pain TECHNIQUE: Frontal and lateral views of the chest are obtained. FINDINGS: Heart and mediastinum are normal. Lungs are clear. Diaphragm is normal. Bony thorax appear s normal. IMPRESSION: Normal chest. No change.
[2019-10-13 19:58] LABS: D-Dimer 0.31 mg/L FEU (<0.60); INR 0.9 (<1.2); Partial Thromboplastin Time 30.3 sec (22.0-30.0); Prothrombin Time 9.9 sec (9.0-12.0)
[2019-10-13 20:02] LABS: ALT 22 U/L (21-72); AST 31 U/L (17-59); African American GFR (CKD) >90 (>60 ml/min/1.73 sqM); Albumin 4.3 g/dL (3.5-5.0); Alkaline Phosphatase 69 U/L (38-126); Anion Gap 10 mmol/L; Blood Urea Nitrogen 17 mg/dL (9-20); Calcium 9.3 mg/dL (8.4-10.2); Carbon Dioxide 23 mmol/L (22-30); Chloride 106 mmol/L (98-107); Glucose 100 mg/dL (74-99); Magnesium 2.1 mg/dL (1.6-2.3); Non-African American GFR(CKD) >90 (>60 ml/min/1.73 sqM); Sodium 139 mmol/L (137-145); Total Bilirubin 0.5 mg/dL (0.2-1.3); Total Protein 7.6 g/dL (6.3-8.2)
[2019-10-13 20:36] LABS: Band Neutrophils % 2 %; Basophils # (M) 0.07 k/uL (0-0.2); Eosinophils # (M) 0.13 k/uL (0-0.7); Lymphocytes # (M) 3.64 k/uL (1.0-4.8); Monocytes # (M) 0.72 k/uL (0-1.0); Neutrophils % (M) 28 %; Nucleated Red Blood Cells 0 /100 WBC (0-0); Total Cells Counted 100
[2019-10-13 20:37] LABS: Large Platelets Present
--- NOTE | 2019-10-13 20:54 | CT ---
EXAMINATION TYPE: CT chest angio for PE DATE OF EXAM: 10/13/2019 COMPARISON: None HISTORY: Post sx chest pain. Pt had hand sx Tuesday and has been having chest pain, SOB after. CT DLP: 372.8 mGycm Automated exposure control for dose reduction was used. CONTRAST: CT Chest for pulmonary embolism performed with with IV Contrast, patient injected with 100 mL of Isov ue 370. There are 3-D post processed images. FINDINGS: Lungs are clear of consolidation. There is minimal interstitial density in the lower lung fox. There is no pleural effusion. Heart size is normal. There is no pericardial effusion. There is no mediastinal adenopathy. Thoracic aorta appears normal. There is no aneurysm or dissection . There are no hilar masses. There is normal contrast opacification of the pulmonary arteries. I see no filling defect. IMPRESSION: Minimal subsegmental atelectasis at the lung bases. No evidence of pulmonary embolism.
[2019-10-13 22:07] VITALS: BP 127/69; PULSE 74; RESP 17; TEMP 98.1
== END 2019-10-13 22:00 | disposition home or self-care (01) ==
LOC: EC 18:46
DX: R07.9 Chest pain, unspecified (principal); Z91.02 Food additives allergy status; Z87.891 Personal history of nicotine dependence
CPT/HCPCS: 36415; 93005; 85379; 80053; 83735; 84484; 85025; 85610; 85730; 71046; 71275; 99285; Q9967

== ENCOUNTER 2019-12-02 19:54 | Inpatient (IN) | payer MEDICAID, OTHER ==
--- NOTE | 2019-12-02 20:29 | ED ---
General Adult HPI - General Chief complaint: Psychiatric Symptoms Stated complaint: Mental Health Time Seen by Provider: 12/02/19 20:12 Source: patient Mode of arrival: ambulatory Limitations: no limitations - History of Present Illness Initial comments: Dictation was produced using [employer] dictation software. please excuse any grammatical, word or spelling errors. Chief Complaint: 24-year-old male brought in for suicidal behavior. History of Present Illness: Patient is 24-year-old male presents with suicidal behavior. Yesterday patient tried to kill himself. He states that he wrapped a belt around his neck causing him to pass out. Patient states that he woke up and some unknown time and unraveled belt. Patient has been otherwise asymptomatic since then. He has long history of suicidal behavior. He is noted by mother to be holding knives that his neck all the time. He also has cut himself in the past. Mother had a difficult time trying to bring patient to the emergency department for help. Patient has any pain complaints to his neck or throat at the moment. The ROS documented in this emergency department record has been reviewed and confirmed by me. Those systems with pertinent positive or negative responses have been documented in the HPI. All other systems are other negative and/or noncontributory. PHYSICAL EXAM: General Impression: Alert and oriented x3, not in acute distress HEENT: Normocephalic atraumatic, neck is atraumatic, no swelling of the neck, extra-ocular movements intact, pupils equal and reactive to light bilaterally, mucous membranes moist. Cardiovascular: Heart regular rate and rhythm Chest: Breath sounds Abdomen: abdomen soft Musculoskeletal: Pulses present and equal in all extremities, no peripheral edema Motor: no focal deficits noted Neurological: CN II-XII grossly intact, no focal motor or sensory deficits noted Skin: Multiple tattoos, superficial abrasion to the left anterior forearm Psych: Flat affect ED course: 24-year-old male presents with suicidal behavior. He allegedly put a belt around his neck sometime in the afternoon yesterday. He has been asymptomatic for approximately 24 hours. Patient is well-appearing at bedside. Physical examination is benign any traumatic injuries. Given that allegedly incident happened approximately 24 hours ago I do not believe patient indicated to have CT soft tissue of the neck given benign physical examination. Laboratory evaluation obtained. CBC, metabolic panel, salicylates, Tylenol and alcohol levels negative. Patient is well-appearing at bedside. Patient medically cleared for EPS evaluation. Patient will be admitted to inpatient psych. EKG interpretation: Ventricular rate 90, normal sinus rhythm,. 1:30, care is 96, QTC 434. No FL prolongation, no QTC prolongation, no ST or T-wave changes noted. Overall, this EKG is unremarkable - Related Data Previous Rx's Medication Instructions Recorded Cyclobenzaprine [Flexeril] 10 mg PO HS 4 Days #4 tab 12/12/18 Sulfamethox-Tmp 800-160Mg [Bactrim 1 tab PO Q12HR #20 tab 10/07/19 DS 800-160 mg] Ibuprofen 800 mg PO Q8H PRN 7 Days #21 tablet 10/13/19 Allergies Allergy/AdvReac Type Severity Reaction Status Date / Time red 40 Allergy Anaphylaxis Uncoded 12/02/19 20:14 Review of Systems ROS Statement: Those systems with pertinent positive or pertinent negative responses have been documented in the HPI. ROS Other: All systems not noted in ROS Statement are negative. Past Medical History Past Medical History: No Reported History Additional Past Medical History / Comment(s): seizure x1 after taking drugs in 2012. no follow up, History of Any Multi-Drug Resistant Organisms: None Reported Past Surgical History: Appendectomy, Orthopedic Surgery Additional Past Surgical History / Comment(s): rt hand 2012, rt hand 2018 Past Anesthesia/Blood Transfusion Reactions: No Reported Reaction Past Psychological History: ADD/ADHD, Anxiety, Bipolar, Depression, Schizophrenia Smoking Status: Former smoker Past Alcohol Use History: None Reported Past Drug Use History: None Reported - Past Family History Mother Family Medical History: No Reported History General Exam Limitations: no limitations Course Vital Signs 12/02/19 20:10 Temperature 97.7 F Pulse Rate 83 Respiratory 18 Rate Blood Pressure 151/101 O2 Sat by Pulse 100 Oximetry Medical Decision Making - Lab Data Result diagrams: 12/02/19 20:45 12/02/19 20:45 Lab Results 12/02/19 12/02/19 Range/Units 20:45 20:45 WBC 6.5 (3.8-10.6) k/uL RBC 4.83 (4.30-5.90) m/uL Hgb 14.2 (13.0-17.5) gm/dL Hct 44.6 (39.0-53.0) % MCV 92.3 (80.0-100.0) fL MCH 29.4 (25.0-35.0) pg MCHC 31.9 (31.0-37.0) g/dL RDW 14.2 (11.5-15.5) % Plt Count 179 (150-450) k/uL Neutrophils % 58 % Lymphocytes % 26 % Monocytes % 6 % Eosinophils % 6 % Basophils % 1 % Neutrophils # 3.8 (1.3-7.7) k/uL Lymphocytes # 1.7 (1.0-4.8) k/uL Monocytes # 0.4 (0-1.0) k/uL Eosinophils # 0.4 (0-0.7) k/uL Basophils # 0.1 (0-0.2) k/uL Sodium 141 (137-145) mmol/L Potassium 3.8 (3.5-5.1) mmol/L Chloride 108 H (98-107) mmol/L Carbon Dioxide 24 (22-30) mmol/L Anion Gap 9 mmol/L BUN 10 (9-20) mg/dL Creatinine 0.74 (0.66-1.25) mg/dL Est GFR (CKD-EPI)AfAm >90 (>60 ml/min/1.73 sqM) Est GFR (CKD-EPI)NonAf >90 (>60 ml/min/1.73 sqM) Glucose 88 (74-99) mg/dL Calcium 9.1 (8.4-10.2) mg/dL Salicylates <1.0 mg/dL Acetaminophen <10.0 ug/mL Serum Alcohol <10 mg/dL Disposition Clinical Impression: Suicide attempt Disposition: ADMITTED IP TO THIS HOSP Condition: Fair Decision Time: 22:47
[2019-12-02 20:54] LABS: Basophils # (A) 0.1 k/uL (0-0.2); Basophils % (A) 1 %; Eosinophils # (A) 0.4 k/uL (0-0.7); Eosinophils % (A) 6 %; HCT 44.6 % (39.0-53.0); HGB 14.2 gm/dL (13.0-17.5); Lymphocytes # (A) 1.7 k/uL (1.0-4.8); Lymphocytes % (A) 26 %; MCH 29.4 pg (25.0-35.0); MCHC 31.9 g/dL (31.0-37.0); MCV 92.3 fL (80.0-100.0); Mean Platelet Volume 9.2; Monocytes # (A) 0.4 k/uL (0-1.0); Monocytes % (A) 6 %; Neutrophils # (A) 3.8 k/uL (1.3-7.7); Neutrophils % (A) 58 %; Platelet Count 179 k/uL (150-450); RBC 4.83 m/uL (4.30-5.90); RDW 14.2 % (11.5-15.5); WBC 6.5 k/uL (3.8-10.6)
[2019-12-02 21:02] LABS: Acetaminophen <10.0 ug/mL; African American GFR (CKD) >90 (>60 ml/min/1.73 sqM); Alcohol <10 mg/dL; Anion Gap 9 mmol/L; Blood Urea Nitrogen 10 mg/dL (9-20); Calcium 9.1 mg/dL (8.4-10.2); Carbon Dioxide 24 mmol/L (22-30); Chloride 108 mmol/L (98-107); Glucose 88 mg/dL (74-99); Non-African American GFR(CKD) >90 (>60 ml/min/1.73 sqM); Potassium 3.8 mmol/L (3.5-5.1); Salicylate <1.0 mg/dL; Sodium 141 mmol/L (137-145)
[2019-12-02] MEDS ORDERED: MAG HYDROX/AL HYDROX/SIMETH 30 ML CUP PO PRN (22:43)
[2019-12-02] MEDS ORDERED: ZIPRASIDONE 20 MG VIAL IM PRN (22:43)
[2019-12-02] MEDS ORDERED: LORazepam 1 MG TAB PO PRN (22:43)
[2019-12-02] MEDS ORDERED: MAGNESIUM HYDROXIDE 2,400 MG/10 ML CUP PO PRN (22:43)
[2019-12-03 07:56] LABS: ALT 30 U/L (4-49); AST 29 U/L (17-59); African American GFR (CKD) >90 (>60 ml/min/1.73 sqM); Albumin 4.2 g/dL (3.5-5.0); Alkaline Phosphatase 77 U/L (38-126); Anion Gap 7 mmol/L; Blood Urea Nitrogen 13 mg/dL (9-20); Calcium 9.2 mg/dL (8.4-10.2); Carbon Dioxide 28 mmol/L (22-30); Chloride 108 mmol/L (98-107); Cholesterol 234 mg/dL (<200); Glucose 95 mg/dL (74-99); HDL Cholesterol 47 mg/dL (40-60); LDL Cholesterol,Calculated 163 mg/dL (0-99); Non-African American GFR(CKD) >90 (>60 ml/min/1.73 sqM); Potassium 4.2 mmol/L (3.5-5.1); Sodium 143 mmol/L (137-145); Total Bilirubin 0.5 mg/dL (0.2-1.3); Total Protein 7.3 g/dL (6.3-8.2); Triglycerides 119 mg/dL (<150)
[2019-12-03 07:57] LABS: Basophils # (A) 0.1 k/uL (0-0.2); Basophils % (A) 2 %; Eosinophils # (A) 0.5 k/uL (0-0.7); Eosinophils % (A) 8 %; HCT 44.3 % (39.0-53.0); HGB 14.1 gm/dL (13.0-17.5); Lymphocytes # (A) 2.3 k/uL (1.0-4.8); Lymphocytes % (A) 35 %; MCH 29.7 pg (25.0-35.0); MCHC 31.9 g/dL (31.0-37.0); MCV 93.3 fL (80.0-100.0); Mean Platelet Volume 9.2; Monocytes # (A) 0.5 k/uL (0-1.0); Monocytes % (A) 8 %; Neutrophils % (A) 44 %; Platelet Count 184 k/uL (150-450); RBC 4.75 m/uL (4.30-5.90); RDW 14.3 % (11.5-15.5); WBC 6.7 k/uL (3.8-10.6)
[2019-12-03] MEDS: NICOTINE 21MG/24HR PATCH TRANSDERM SCH (08:57)
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
[2019-12-03 14:09] LABS: Hemoglobin A1C 5.3 % (4.0-6.0)
--- NOTE | 2019-12-03 19:02 | CONS ---
CONSULTATION CHIEF COMPLAINT: Major depression and suicidal attempt. HISTORY OF PRESENT ILLNESS: This gentleman was admitted after he had apparently attempted suicide. He states that he tried to use a belt. REVIEW OF SYSTEMS: He denies any headaches, neck pain, shortness of breath, chest pain, heart disease, hypertension, murmurs, rheumatic fever, abdominal pain, nausea, vomiting, hematemesis, melena, hematochezia, jaundice, hepatitis, cirrhosis, renal failure, hematuria, frequency, urgency, dysuria. Past medical history, family history, and personal and social histories are unremarkable and noncontributory otherwise. He is NOT ALLERGIC TO ANY MEDICATION and he is not taking any. Surgically he has had an appendectomy. He does smoke and he drinks alcohol occasionally. PHYSICAL EXAMINATION: Blood pressure 118/70, pulse of 80, respirations 14. He is afebrile. In general he appeared to be well developed, well nourished, in no acute distress. Skin color is normal. Skin is warm and dry. Lymph nodes are not enlarged. Head, ears, eyes, nose, mouth and throat were normal except for a very flat and depressed affect. Neck veins were not distended. Carotids were normal. Chest is clear to auscultation and percussion. Cardiac exam demonstrated sinus rhythm and no murmurs or extra sounds. Abdomen is flat, soft, nontender without visceromegaly or masses. Bowel sounds present. Extremities are normal. Neurologically he is intact. IMPRESSION: 1. Major depression. 2. Status post suicide attempt. RECOMMENDATIONS: None. He is clearly very depressed and will require careful monitoring in the future. MMODL / IJN: [id number] /
[2019-12-04] MEDS: NICOTINE 21MG/24HR PATCH TRANSDERM SCH (08:57)
--- NOTE | 2019-12-04 11:09 | P.PN ---
Subjective Progress Note Date: 12/04/19 The patient seen in the chart was reviewed. The case was discussed in the team meeting. The patient continues to report feeling depressed and anxious all the time. He continues to report auditory hallucinations telling him to hurt himself and others. He reports lack of desire to live anymore. He reports motivation towards treatment and is agreeable to start him the treatment. The patient is pleasant and cooperative during the interview he had fair eye contact. He continues to report suicidal ideations but contracted for safety. Objective - Vital Signs Vital signs: Vital Signs Temp 97.6 F 12/04/19 06:05 Pulse 67 12/04/19 06:05 Resp 16 12/04/19 06:05 BP 130/60 12/04/19 06:05 Pulse Ox 97 12/04/19 06:05 - Exam Mental Status Exam: The patient appears to be the stated age. He is alert and oriented 3. The patient is dressed in hospital gown and shows minimum grooming. He has fair eye contact. The patient was sitting comfortably during the interview and was up of hitting pleasant and cooperative. He has his his speech was low tone and volume but otherwise goal directed and logical. He didn't he reports auditory hallucinations telling him to hurt himself and others. The patient shows no psychomotor agitation or retardation during the interview. He continues to report suicidal ideations but denies any intention or plan to harm himself or anyone else. He appears to be preoccupied. He reports fair insight into his illness and is showing improving judgment. - Labs CBC & Chem 7: 12/03/19 07:28 12/03/19 07:28 Assessment and Plan Assessment: IMPRESSIONS: Bipolar disorder, depressive episode with psychotic features Plan: PLAN: . Continue treatment as an inpatient for safety and monitoring. Precautions: Continue 15 minutes check for safety. Placed on suicidal precautions Consults internal medicine team for swelling and numbness of left leg and reported bilateral LL pain. Provide the patient individual, group therapy, substance use disorder counseling to give better insight and learn coping skills. 1:1 support and psychotherapy Start Zyprexa 5 mg by mouth daily at bedtime and 5 mg by mouth daily when necessary. Start Tegretol 100 mg by mouth twice a day Adjust medications and monitor closely for the patient's symptoms getting worse and /or possible side effects on medications. Continue inpatient level of care due to need for further stabilization on medicationsStart Milieu therapy including PT, OT and GT. Discharge patient to OUTPATIENT services upon a stabilization Expected LOS: 3-5 days
[2019-12-04] MEDS: carBAMazepine 200 MG TAB PO SCH (20:38)
[2019-12-04] MEDS ORDERED: OLANZapine 5 MG TAB PO SCH (21:00)
[2019-12-05] MEDS: NICOTINE 21MG/24HR PATCH TRANSDERM SCH (09:17)
[2019-12-05] MEDS: carBAMazepine 200 MG TAB PO SCH ×2 (09:18→21:00)
--- NOTE | 2019-12-05 14:47 | P.PN ---
Subjective Progress Note Date: 12/05/19 The patient was seen in the chart was reviewed. Case was discussed with staff and team meeting. The patient reports feeling a little bit better. He continues to report racing thoughts but reports some improvement is not free hallucinations. The patient also reports visual hallucinations but could not specify. The patient has been cooperative and compliant with the treatment. He has been taking his medications regularly and attends milieu therapy. The patient reports some improvement and suicidal ideations but reports that he is still gets suicidal from time to time. The patient has been pleasant and cooperative during the interview. The patient denies any active suicidal or homicidal ideations. The patient denies any side effects from the medications. Objective - Vital Signs Vital signs: Vital Signs Temp 97.8 F 12/05/19 06:44 Pulse 64 12/05/19 06:44 Resp 18 12/05/19 06:44 BP 100/58 12/05/19 06:44 Pulse Ox 97 12/04/19 06:05 - Exam Mental Status Exam: The patient appears to be the stated age. He is alert and oriented 3. The patient is dressed in hospital gown and shows minimum grooming. He has fair eye contact. The patient was sitting comfortably during the interview and was up of hitting pleasant and cooperative. He has his his speech was low tone and volume but otherwise goal directed and logical. He didn't he reports auditory hallucinations telling him to hurt himself and others. The patient shows no psychomotor agitation or retardation during the interview. He continues to report suicidal ideations but denies any intention or plan to harm himself or anyone else. He appears to be preoccupied. He reports fair insight into his illness and is showing improving judgment. - Labs CBC & Chem 7: 12/03/19 07:28 12/03/19 07:28 Assessment and Plan Assessment: IMPRESSIONS: Bipolar disorder, depressive episode with psychotic features Plan: PLAN: . Continue treatment as an inpatient for safety and monitoring. Precautions: Continue 15 minutes check for safety. Placed on suicidal precautions Consults internal medicine team for swelling and numbness of left leg and reported bilateral LL pain. Provide the patient individual, group therapy, substance use disorder counseling to give better insight and learn coping skills. 1:1 support and psychotherapy Increae Zyprexa 10 mg by mouth daily at bedtime and 5 mg by mouth daily when necessary. Increase Tegretol 200 mg by mouth twice a day Adjust medications and monitor closely for the patient's symptoms getting worse and /or possible side effects on medications. Continue inpatient level of care due to need for further stabilization on med icationsStart Milieu therapy including PT, OT and GT. Discharge patient to OUTPATIENT services upon a stabilization Expected LOS: 3-5 days
[2019-12-05] MEDS ORDERED: OLANZapine 10 MG TAB PO SCH (21:00)
[2019-12-06] MEDS: NICOTINE 21MG/24HR PATCH TRANSDERM SCH (09:27)
[2019-12-06] MEDS: carBAMazepine 200 MG TAB PO SCH ×2 (09:28→20:52)
--- NOTE | 2019-12-06 13:03 | P.PN ---
Subjective Progress Note Date: 12/06/19 The patient was seen in the chart was reviewed. The case was discussed with staff on the unit. The patient continues to report slow improvement in his mood and functioning. The patient reports some improvement in her his sleep and slept about 5 hours last night. The patient reports improved appetite. The patient denies any crying spells or panic attacks but reports periods of anxiety. The patient reports periods of dysphoric mood and on and off suicidal ideations. The patient reports some improvement in auditory hallucinations. The patient denies any paranoia at this time. The patient has been tolerating the changes in medications without any side effects. Objective - Vital Signs Vital signs: Vital Signs Temp 97.8 F 12/06/19 06:22 Pulse 64 12/06/19 06:22 Resp 12 12/06/19 06:22 BP 113/57 12/06/19 06:22 Pulse Ox 97 12/04/19 06:05 - Exam Mental Status Exam: The patient appears to be the stated age. He is alert and oriented 3. The patient is dressed in hospital gown and shows minimum grooming. He has fair eye contact. The patient was sitting comfortably during the interview and was up of hitting pleasant and cooperative. He has his his speech was low tone and volume but otherwise goal directed and logical. He didn't he reports auditory hallucinations telling him to hurt himself and others. The patient shows no psychomotor agitation or retardation during the interview. He continues to report suicidal ideations but denies any intention or plan to harm himself or anyone else. He appears to be preoccupied. He reports fair insight into his illness and is showing improving judgment. - Labs CBC & Chem 7: 12/03/19 07:28 12/03/19 07:28 Assessment and Plan Assessment: IMPRESSIONS: Bipolar disorder, depressive episode with psychotic features Plan: PLAN: . Continue treatment as an inpatient for safety and monitoring. Precautions: Continue 15 minutes check for safety. Placed on suicidal precautions Consults internal medicine team for swelling and numbness of left leg and reported bilateral LL pain. Provide the patient individual, group therapy, substance use disorder counseling to give better insight and learn coping skills. 1:1 support and psychotherapy Increae Zyprexa 15 mg by mouth daily at bedtime and 5 mg by mouth daily when necessary. Increase Tegretol 300 mg by mouth twice a day Adjust medications and monitor closely for the patient's symptoms getting worse and /or possible side effects on medications. Continue inpatient level of care due to need for further stabilization on medicationsStart Milieu therapy including PT, OT and GT. Discharge patient to OUTPATIENT services upon a stabilization Expected LOS: 3-5 days
[2019-12-06] MEDS: OLANZapine 10 MG TAB PO SCH (20:52)
[2019-12-07 08:52] LABS: Basophils % (A) 1 %; Eosinophils # (A) 0.5 k/uL (0-0.7); Eosinophils % (A) 8 %; HCT 45.3 % (39.0-53.0); HGB 14.4 gm/dL (13.0-17.5); Lymphocytes # (A) 2.5 k/uL (1.0-4.8); Lymphocytes % (A) 42 %; MCH 29.7 pg (25.0-35.0); MCHC 31.7 g/dL (31.0-37.0); MCV 93.7 fL (80.0-100.0); Mean Platelet Volume 9.7; Monocytes # (A) 0.4 k/uL (0-1.0); Monocytes % (A) 7 %; Neutrophils # (A) 2.3 k/uL (1.3-7.7); Neutrophils % (A) 39 %; Platelet Count 171 k/uL (150-450); RBC 4.83 m/uL (4.30-5.90); RDW 14.1 % (11.5-15.5); WBC 5.9 k/uL (3.8-10.6)
[2019-12-07] MEDS: NICOTINE 21MG/24HR PATCH TRANSDERM SCH (09:02)
[2019-12-07] MEDS: carBAMazepine 200 MG TAB PO SCH ×2 (09:02→21:11)
[2019-12-07 09:05] LABS: ALT 21 U/L (4-49); AST 25 U/L (17-59); African American GFR (CKD) >90 (>60 ml/min/1.73 sqM); Albumin 4.3 g/dL (3.5-5.0); Alkaline Phosphatase 84 U/L (38-126); Anion Gap 11 mmol/L; Blood Urea Nitrogen 12 mg/dL (9-20); Calcium 9.5 mg/dL (8.4-10.2); Carbon Dioxide 27 mmol/L (22-30); Chloride 105 mmol/L (98-107); Glucose 87 mg/dL (74-99); Non-African American GFR(CKD) >90 (>60 ml/min/1.73 sqM); Potassium 4.3 mmol/L (3.5-5.1); Sodium 143 mmol/L (137-145); Total Bilirubin 0.3 mg/dL (0.2-1.3); Total Protein 7.5 g/dL (6.3-8.2)
--- NOTE | 2019-12-07 13:20 | P.PN ---
Subjective Progress Note Date: 12/07/19 The patient seen in the chart was reviewed. The patient reports feeling better. He reports some improvement in his sleep but reports sleeping about 5 hours last night. The patient reports improved mood and denies any auditory or visual hallucinations at this time. The patient has been compliant with the medications and the milieu therapy. The patient is pleasant and cooperative with the treatment at this time. The patient reports fleeting suicidal ideations yesterday but denies any today. Objective - Vital Signs Vital signs: Vital Signs Temp 97.9 F 12/07/19 06:21 Pulse 83 12/07/19 06:21 Resp 14 12/07/19 06:21 BP 121/80 12/07/19 06:21 Pulse Ox 97 12/04/19 06:05 - Exam Mental Status Exam: The patient appears to be the stated age. He is alert and oriented 3. The patient is dressed in hospital gown and shows minimum grooming. He has fair eye contact. The patient was sitting comfortably during the interview and was up of hitting pleasant and cooperative. He has his his speech was low tone and volume but otherwise goal directed and logical. He didn't he reports auditory hallucinations telling him to hurt himself and others. The patient shows no psychomotor agitation or retardation during the interview. He continues to report suicidal ideations but denies any intention or plan to harm himself or anyone else. He appears to be preoccupied. He reports fair insight into his illness and is showing improving judgment. - Labs CBC & Chem 7: 12/07/19 08:12 12/07/19 08:12 Assessment and Plan Assessment: IMPRESSIONS: Bipolar disorder, depressive episode with psychotic features Plan: PLAN: . Continue treatment as an inpatient for safety and monitoring. Precautions: Continue 15 minutes check for safety. Placed on suicidal precautions Consults internal medicine team for swelling and numbness of left leg and reported bilateral LL pain. Provide the patient individual, group therapy, substance use disorder counseling to give better insight and learn coping skills. 1:1 support and psychotherapy Increase Zyprexa 20 mg by mouth daily at bedtime and 5 mg by mouth daily when necessary. Continue Tegretol 300 mg by mouth twice a day Lab results reviewed and discussed with the patient. Plan to check Tegretol level next week and adjust the dose as needed. Adjust medications and monitor closely for the patient's symptoms getting worse and /or possible side effects on medications. Continue inpatient level of care due to need for further stabilization on medicationsStart Milieu therapy including PT, OT and GT. Discharge patient to OUTPATIENT services upon a stabilization Expected LOS: 3-5 days
[2019-12-07] MEDS: IBUPROFEN 200 MG TAB PO PRN (18:40)
[2019-12-07] MEDS: OLANZapine 10 MG TAB PO SCH (21:17)
--- NOTE | 2019-12-08 08:16 | P.PN ---
Progress Note - Text Interval history: The patient is found and that he follows me to an interview room. He is diagnosed with bipolar disorder. He was admitted to the mental health unit after a suicide attempt via hanging with a belt. He states that suicidal thoughts are resolving. He was also noted to have symptoms of psychosis. He states that he was experiencing auditory hallucinations directing self-harm as recent as 2 days ago. He states that his psychiatrist increased his medications and since then he has been doing better. He states he's been attending groups he is able to sleep at night. He anticipates a visit this evening from his girlfriend. He has no questions or concerns regarding his psychotropic medications other than knowing if they are for anxiety. Mental status exam: The patient is alert he is dressed in jeans and a T-shirt has a disheveled appearance his hair is up in a bun. Eye contact is appropriate speech is fluent spontaneous nonpressured. He reports his mood is better area he states he's having no suicidal thoughts today and he had none yesterday. He reported having suicidal thoughts the day before however. He reports no auditory or visual hallucinations today or yesterday area as noted previously he states the auditory hallucinations were commanding in nature. He feels safe here on the mental health unit. He is reporting no thoughts of harming others. He endorses no specific delusions at this time. He demonstrates no tangential thinking loose associations or flight of ideas. He demonstrates no verbal or physical aggressiveness he demonstrates no involuntary repetitive movements. He may demonstrate some mild psychomotor slowing but that may be due to him just waking and getting out of bed. Plan: The patient will continue on his current psychotropic medications we will monitor him for safety he is encouraged to fully participate in the milieu. Vital signs reviewed. He is not yet due for a Tegretol level.
[2019-12-08] MEDS: carBAMazepine 200 MG TAB PO SCH ×2 (08:51→21:26)
[2019-12-08] MEDS: NICOTINE 21MG/24HR PATCH TRANSDERM SCH (08:51)
[2019-12-08] MEDS: IBUPROFEN 200 MG TAB PO PRN (10:45)
[2019-12-08] MEDS: OLANZapine 10 MG TAB PO SCH (21:26)
[2019-12-09] MEDS: NICOTINE 21MG/24HR PATCH TRANSDERM SCH (08:43)
[2019-12-09] MEDS: carBAMazepine 200 MG TAB PO SCH ×2 (08:43→20:52)
--- NOTE | 2019-12-09 11:35 | P.PN ---
Progress Note - Text Interval history: The patient is found in his room he follows me to an interview room. He reports his mood is okay. He reports having some anxiety and wonders if we can prescribed medicine for that. He had a pleasant visit with his girlfriend and another friend last evening. He expects his parents will visit this morning. Appetite is been stable. He has been selectively attending groups. We reviewed his psychotropic medication he has no concerns regarding those. Mental status exam: The patient is alert he is dressed in his own clothing he has his hair up in a bun. Eye contact is appropriate. He is soft-spoken. He has little spontaneous speech but does provide brief answers to questions. He is reporting no acute suicidal or homicidal ideation intent or plan at this time. Reporting no auditory or visual hallucinations. He reports no specific delusions there is no observed evidence of psychosis. He demonstrates no tangential thinking loose associations or flight of ideas. He is demonstrating no repetitive involuntary movements. Insight and judgment slowly improving. Plan: The patient will continue on his current psychotropic medications. Vital signs reviewed. He is encouraged to more fully participate in the milieu.
[2019-12-09 14:13] VITALS: BMI 22.7
[2019-12-09] MEDS: IBUPROFEN 200 MG TAB PO PRN (17:10)
[2019-12-09] MEDS: ACETAMINOPHEN TAB 325 MG TAB PO PRN (20:14)
[2019-12-09] MEDS: OLANZapine 10 MG TAB PO SCH (20:51)
[2019-12-10] MEDS: NICOTINE 21MG/24HR PATCH TRANSDERM SCH (09:04)
[2019-12-10] MEDS: IBUPROFEN 200 MG TAB PO PRN ×2 (09:05→22:30)
[2019-12-10] MEDS: carBAMazepine 200 MG TAB PO SCH ×2 (09:05→22:28)
--- NOTE | 2019-12-10 14:33 | P.PN ---
Subjective Progress Note Date: 12/10/19 Principal diagnosis: Depressive disorder, rule out pervasive depressive disorder, rule out major depressive disorder recurrent, rule out bipolar disorder current episode depressed I reviewed the medical record, interviewed the patient and discuss his treatment and treatment plan during team meeting. He described a history of recurrent depression with multiple prior suicide attempts. This admission followed a attempted suicide. He described the expectation that that the attempt would have ended his life. He also described experiencing auditory and command hallucinations directing him to suicide. He was unable to describe a event, events or circumstances that contributed to his increasing depression, suicidal ideation and suicide attempt. He described a history of depression beginning in adolescence. The depression severity "waxes and wanes" and worsened in about September 2019. He denied current thoughts of or suicide. He reported that his mood has improved since admission to the unit. He denied problems with sleep or appetite. He denied side effects to the current psychotropic medications- Tegretol and Zyprexa. Objective - Vital Signs Vital signs: Vital Signs Temp 97.9 F 12/10/19 00:15 Pulse 113 H 12/10/19 00:11 Resp 16 12/10/19 00:11 BP 159/94 12/10/19 00:11 Pulse Ox 97 12/10/19 00:11 Intake & Output 12/09/19 12/10/19 12/10/19 18:59 06:59 18:59 Weight 80.3 kg - Exam He presented as a tall, thin and pale appearing 24-year-old male who was pleasant on approach. He had marked psychomotor slowing. His speech was soft and slow. He had little spontaneous speech but provided brief answers. Hi s affect was depressed and slightly reactive. He denied current auditory hallucinations and didn't appear to be responding to internal stimuli. - Labs CBC & Chem 7: 12/07/19 08:12 12/07/19 08:12 Assessment and Plan Assessment: He has a young male who has a history of depression beginning in adolescence that worsened in September 2019. He has had multiple suicide attempts and prior psychiatric hospitalizations. I was unable to identify clear episode of elevated mood or sustained irritability consistent with gaby or hypomania. He appears to be chronically depressed with periods of worsening depression associated with psychotic symptoms. Plan: Continue hospitalization. Safety precautions. Continue Tegretol 3 mg twice a day and Zyprexa 50 mg at bedtime. Consider a trial of an antidepressant. Encourage continued participation in therapeutic groups and activities. Evaluate clinical status and response to treatment on a daily basis.
[2019-12-10] MEDS: OLANZapine 10 MG TAB PO SCH (22:29)
[2019-12-11] MEDS: NICOTINE 21MG/24HR PATCH TRANSDERM SCH (08:49)
[2019-12-11] MEDS: carBAMazepine 200 MG TAB PO SCH ×2 (08:50→20:51)
[2019-12-11] MEDS: IBUPROFEN 200 MG TAB PO PRN ×3 (08:52→22:12)
[2019-12-11] MEDS: ACETAMINOPHEN TAB 325 MG TAB PO PRN ×2 (08:53→16:08)
--- NOTE | 2019-12-11 15:31 | P.PN ---
Subjective Progress Note Date: 12/11/19 Principal diagnosis: Depressive disorder, rule out pervasive depressive disorder, rule out major depressive disorder recurrent, rule out bipolar disorder current episode depressed I reviewed the medical record, interviewed the patient and discuss his treatment and treatment plan during team meeting. He feels much less depressed than on admission. His progress was confirmed by reports of staff where admission he would speak and avoided contact with peers and staff. He denied experiencing suicidal ideation or wishes. His only complaint was anxiety but did not request medications for such. He talked about being self conscious of his stuttering and experiencing increased anxiety in the presence of strangers, large crowds or authority figures. He avoids contact with such circumstances due to continued concerns of embarrassing himself. We discussed treatment options and agreed to plan for discharge on 12/12/2019 with a referral to [facility]. He agreed to discuss his anxiety and his anxiety in social situations with his therapist. Objective - Vital Signs Vital signs: Vital Signs Temp 98.3 F 12/11/19 05:53 Pulse 85 12/11/19 05:53 Resp 15 12/11/19 05:53 BP 129/60 12/11/19 05:53 Pulse Ox 97 12/10/19 00:11 - Exam He presented as a tall, thin and pale appearing 24-year-old male who was pleasant on approach. He had slight psychomotor slowing. His speech was soft and slow. His speech was slow and he occasionally stuttered but he was more expressive than in our initial encounter. His affect was depressed but reactive. He denied current auditory hallucinations and didn't appear to be responding to internal stimuli. - Labs CBC & Chem 7: 12/07/19 08:12 12/07/19 08:12 Assessment and Plan Assessment: He is moderately mentally ill and much improved from admission. He is appropriate for discharge and follow-up with [facility]. Plan: Plan for discharge on 12/12/2019 Safety precautions. Continue Tegretol 300 mg twice a day and Zyprexa 50 mg at bedtime. Consider a trial of an antidepressant. machine lay out worker to coordinate discharge and aftercare services. Evaluate clinical status and response to treatment on a daily basis.
[2019-12-11] MEDS: OLANZapine 10 MG TAB PO SCH (20:51)
[2019-12-12 06:42] VITALS: BP 126/59; PULSE 84; RESP 16; TEMP 97.9
[2019-12-12] MEDS: NICOTINE 21MG/24HR PATCH TRANSDERM SCH (08:50)
[2019-12-12] MEDS: carBAMazepine 200 MG TAB PO SCH (08:50)
[2019-12-12] MEDS: IBUPROFEN 200 MG TAB PO PRN (08:51)
== END 2019-12-12 11:48 | disposition home or self-care (01) | DRG 885 ==
LOC: EC 19:54 → 3MHU 22:22
PROVIDERS: ADMIT Psychiatry & Neurology Psychiatry; ATTEND Psychiatry & Neurology Psychiatry
DX: F31.5 Bipolar disorder, current episode depressed, severe, with psychotic features (principal); T71.162A Asphyxiation due to hanging, intentional self-harm, initial encounter; F41.9 Anxiety disorder, unspecified; F60.0 Paranoid personality disorder; F80.81 Childhood onset fluency disorder; S50.812A Abrasion of left forearm, initial encounter; Z81.1 Family history of alcohol abuse and dependence; Z81.8 Family history of other mental and behavioral disorders; F17.210 Nicotine dependence, cigarettes, uncomplicated; Z91.5 Personal history of self-harm; F10.10 Alcohol abuse, uncomplicated; Z90.49 Acquired absence of other specified parts of digestive tract
CPT/HCPCS: 36415; 80048; 80053; 80061; 80320; 80329; 82075; 83036; 83520; 84443; 85025; 93005; 99285

== ENCOUNTER 2020-01-05 19:57 | Emergency (ER) | payer OTHER ==
[2020-01-05 20:28] VITALS: BP 133/83; PULSE 84; RESP 18; TEMP 97.6
--- NOTE | 2020-01-05 21:04 | ED ---
Recheck HPI - General Chief Complaint: Recheck/Abnormal Lab/Rx Stated Complaint: Med Refill Time Seen by Provider: 01/05/20 20:07 Source: patient Mode of arrival: ambulatory Limitations: no limitations - History of Present Illness Initial Comments: Patient is a 24-year-old male presenting to the emergency department requesting a refill of his medicines including Zyprexa and Tegretol. Patient states he does have an appointment with his psychologist on 01/17/2020 this states he is about to run out of both medications. Patient denies any other complaints today. He denies fever, chills, cough. He denies homicidal or suicidal thoughts. Upon arrival to the ER as vitals are stable. - Related Data Previous Rx's Medication Instructions Recorded OLANZapine [ZyPREXA] 15 mg PO HS 14 Days #21 tab 01/05/20 carBAMazepine [TEGretol] 300 mg PO BID 14 Days #42 tab 01/05/20 Allergies Allergy/AdvReac Type Severity Reaction Status Date / Time red 40 Allergy Anaphylaxis Uncoded 01/05/20 20:06 Review of Systems ROS Statement: Those systems with pertinent positive or pertinent negative responses have been documented in the HPI. ROS Other: All systems not noted in ROS Statement are negative. Past Medical History Past Medical History: No Reported History Additional Past Medical History / Comment(s): seizure x1 after taking drugs in 2012. no follow up, History of Any Multi-Drug Resistant Organisms: None Reported Past Surgical History: Appendectomy, Orthopedic Surgery Additional Past Surgical History / Comment(s): rt hand 2012, rt hand 2019 Past Anesthesia/Blood Transfusion Reactions: No Reported Reaction Past Psychological History: ADD/ADHD, Anxiety, Bipolar, Depression, Schizophrenia Smoking Status: Current every day smoker Past Alcohol Use History: None Reported Past Drug Use History: None Reported - Past Family History Mother Family Medical History: No Reported History General Exam - General Exam Comments Initial Comments: GENERAL: Well-appearing, well-nourished and in no acute distress. HEAD: Atraumatic, normocephalic. EYES: Pupils equal round and reactive to light, extraocular movements intact, sclera anicteric, conjunctiva are normal. ENT: TMs normal, nares patent, oropharynx clear without exudates. Moist mucous membranes. NECK: Normal range of motion, supple without lymphadenopathy or JVD. LUNGS: Breath sounds clear to auscultation bilaterally and equal. No wheezes rales or rhonchi. HEART: Regular rate and rhythm without murmurs, rubs or gallops. ABDOMEN: Soft, nontender, normoactive bowel sounds. No guarding, no rebound. No masses appreciated. : Deferred EXTREMITIES: Normal range of motion, no pitting or edema. No clubbing or cyanosis. NEUROLOGICAL: Normal speech, normal gait. PSYCH: Normal mood, normal affect. SKIN: Warm, Dry, normal turgor, no rashes or lesions noted. Limitations: no limitations Course Vital Signs 01/05/20 20:02 Temperature 97.6 F Pulse Rate 84 Respiratory 18 Rate Blood Pressure 133/83 O2 Sat by Pulse 98 Oximetry Medical Decision Making - Medical Decision Making Patient is a 24-year-old male presenting for medication refill on Zyprexa and Tegretol. He does have an appointment with a psychiatrist on 01/17/2020. Patient will be given 2 weeks worth of both medications to bring him to that appointment. He is in agreement with this care. Patient stable for discharge at this time. Disposition Clinical Impression: Encounter for medication refill Disposition: HOME SELF-CARE Condition: Stable Instructions (If sedation given, give patient instructions): Medicine Refill (ED) Additional Instructions: Please return to the Emergency Department if symptoms worsen or any other concerns. Follow-up with physician on January 16 as discussed. Prescriptions: carBAMazepine [TEGretol] 300 mg PO BID 14 Days #42 tab OLANZapine [ZyPREXA] 15 mg PO HS 14 Days #21 tab Is patient prescribed a controlled substance at d/c from ED?: No Referrals: None,Stated [Primary Care Provider] - 1-2 days
== END 2020-01-05 21:10 | disposition home or self-care (01) ==
LOC: EC 19:57
DX: Z76.0 Encounter for issue of repeat prescription (principal); F41.9 Anxiety disorder, unspecified; F31.9 Bipolar disorder, unspecified; F20.9 Schizophrenia, unspecified; R56.9 Unspecified convulsions; F17.200 Nicotine dependence, unspecified, uncomplicated; Z91.041 Radiographic dye allergy status; Z79.899 Other long term (current) drug therapy
CPT/HCPCS: 99281

== ENCOUNTER 2020-01-29 15:27 | Emergency (ER) | payer OTHER ==
[2020-01-29 15:30] VITALS: BP 147/89; PULSE 98; TEMP 97.8
[2020-01-29 15:39] VITALS: RESP 16
--- NOTE | 2020-01-29 15:44 | ED ---
General Adult HPI - General Chief complaint: Recheck/Abnormal Lab/Rx Stated complaint: Med refill Time Seen by Provider: 01/29/20 15:30 Source: patient, RN notes reviewed Mode of arrival: ambulatory Limitations: no limitations - History of Present Illness Initial comments: 24-year-old male with a past medical history of seizures, bipolar disorder, depression, schizophrenia presents for medication refill. Patient states that he had an appointment on January 16 to have his medications refilled but he missed the appointment. States that he missed this because the bus did not come pick him up. Patient received a refill on these medications in December. Patient states he did call his doctor to schedule another appointment which is February 13. However he is now out of his medications as of today he denies any other symptoms or problems.Patient has no other complaints at this time including shortness of breath, chest pain, abdominal pain, nausea or vomiting, headache, or visual changes. - Related Data Previous Rx's Medication Instructions Recorded OLANZapine [ZyPREXA] 15 mg PO HS 16 Days #24 tab 01/29/20 carBAMazepine [TEGretol] 300 mg PO BID 14 Days #48 tab 01/29/20 Allergies Allergy/AdvReac Type Severity Reaction Status Date / Time red 40 Allergy Anaphylaxis Uncoded 01/05/20 20:06 Review of Systems ROS Statement: Those systems with pertinent positive or pertinent negative responses have been documented in the HPI. ROS Other: All systems not noted in ROS Statement are negative. Past Medical History Past Medical History: No Reported History Additional Past Medical History / Comment(s): seizure x1 after taking drugs in 2012. no follow up, History of Any Multi-Drug Resistant Organisms: None Reported Past Surgical History: Appendectomy, Orthopedic Surgery Additional Past Surgical History / Comment(s): rt hand 2012, rt hand 2019 Past Anesthesia/Blood Transfusion Reactions: No Reported Reaction Past Psychological History: ADD/ADHD, Anxiety, Bipolar, Depression, Schizophrenia Smoking Status: Current every day smoker Past Alcohol Use History: None Reported Past Drug Use History: None Reported - Past Family History Mother Family Medical History: No Reported History General Exam Limitations: no limitations General appearance: alert, in no apparent distress Head exam: Present: atraumatic, normocephalic, normal inspection Eye exam: Present: normal appearance, PERRL, EOMI. Absent: scleral icterus, conjunctival injection, periorbital swelling ENT exam: Present: normal exam, mucous membranes moist Neck exam: Present: normal inspection Respiratory exam: Present: normal lung sounds bilaterally. Absent: respiratory distress, wheezes, rales, rhonchi, stridor Cardiovascular Exam: Present: regular rate, normal rhythm, normal heart sounds. Absent: bradycardia, tachycardia, irregular rhythm Course Vital Signs 01/29/20 01/29/20 15:28 15:35 Temperature 97.8 F Pulse Rate 98 Respiratory 18 16 Rate Blood Pressure 147/89 O2 Sat by Pulse 100 Oximetry Medical Decision Making - Medical Decision Making Patient presents for medication refill. He did receive a refill on these 2 medications last month. However he apparently missed his appointment and again needs another refill to get him through until his new appointment on February 13. I had a lengthy discussion with patient regarding inappropriate emergency department visits for medication refills. I discussed that I will refill his medications this time but that he will not receive any other refills through the emergency department for these medications and that it is imperative he follows up with his doctor at his scheduled appointment. Patient is in agreement with this. He will return here if he divulged any worsening symptoms. Disposition Clinical Impression: Encounter for medication refill Disposition: HOME SELF-CARE Condition: Good Instructions (If sedation given, give patient instructions): Medicine Refill (ED) Additional Instructions: Please follow-up with your doctor at your appointment for further medication refills. As discussed, you will not receive additional refills through the emergency room. If you have any worsening symptoms return to the ER. Prescriptions: carBAMazepine [TEGretol] 300 mg PO BID 14 Days #48 tab OLANZapine [ZyPREXA] 15 mg PO HS 16 Days #24 tab Is patient prescribed a controlled substance at d/c from ED?: No Referrals: Nan Clifford MD [STAFF PHYSICIAN] - 1-2 days Time of Disposition: 15:41
== END 2020-01-29 15:50 | disposition home or self-care (01) ==
LOC: EC 15:27
DX: Z76.0 Encounter for issue of repeat prescription (principal); F17.200 Nicotine dependence, unspecified, uncomplicated; Z91.041 Radiographic dye allergy status
CPT/HCPCS: 99281

== ENCOUNTER → 2020-11-19 | Outpatient (CLI) | payer OTHER ==
--- NOTE | 2020-11-19 12:31 | MR ---
EXAMINATION TYPE: MR knee LT wo con DATE OF EXAM: 11/19/2020 COMPARISON: Left knee x-ray October 22, 2020 HISTORY: Left knee pain. Pain and swelling for 3 months after falling injury per patient. TECHNIQUE: Multiplanar, multisequence imaging of the left knee is performed without IV contrast. FINDINGS: MEDIAL MENISCUS: Posterior horn shows faint increased signal, does not definitively extend to articul ar surface. Anterior horn is intact. LATERAL MENISCUS: Anterior and posterior horns are intact without tear. CRUCIATE LIGAMENTS: The anterior and posterior cruciate ligaments are intact and unremarkable. COLLATERAL LIGAMENTS: The medial collateral ligament and lateral collateral ligament complex are inta ct and unremarkable. EXTENSOR MECHANISM: Visualized quadriceps and patellar tendons are intact. EFFUSION: No significant suprapatellar joint effusion. POPLITEAL CYST: No popliteal/brewer cyst. TRICOMPARTMENT SPACES: Tricompartment joint spaces are maintained. No significant spurring is seen. CARTILAGE: Tricompartment articular cartilage is preserved. BONE MARROW SIGNAL: No focal abnormal marrow signal is appreciated. OTHER: No additional significant abnormality is appreciated. IMPRESSION: Possible intrasubstance tear posterior horn medial meniscus, no full-thickness meniscal o r ligamentous tear is seen.
== END | disposition home or self-care (01) ==
LOC: RADMRIMAIN 11:20
PROVIDERS: ATTEND Orthopaedic Surgery
DX: M25.562 Pain in left knee (principal)

== ENCOUNTER → 2020-12-25 | Day surgery (SDC) | payer OTHER ==
[2020-12-23 16:40] VITALS: BMI 28.3
--- NOTE | 2020-12-24 16:46 | HP ---
HISTORY AND PHYSICAL DATE OF SURGERY: 12/25/2020 Gerardo Olivas is a 25-year-old gentleman seen with progressive left knee pain. Options were discussed. He elected to proceed with arthroscopy. Consent was obtained. PAST MEDICAL HISTORY: Anxiety. PAST SURGICAL HISTORY: Appendectomy, hand surgery. DAILY MEDICATIONS: Ibuprofen. ALLERGIES: NONE. SOCIAL HISTORY: He smokes cigarettes. PHYSICAL EVALUATION OF THE LEFT KNEE: Range of motion is negative 3 to 90. Mild effusion. Tenderness, medial joint line. Positive medial Leny's. Ligaments stable. Hip rotation without pain. Distal neurovascular exam is intact. RADIOGRAPHS: Radiographs of the left knee revealed no abnormality. MRI of the left knee: intrasubstance tear, medial meniscus. IMPRESSION: Internal derangement of left knee with medial meniscal tear. PLAN: Left knee arthroscopy with partial meniscectomy and debridement. MMODL / IJN: [id number] /
[~2020-12-25] MED LIST: BUPIVACAINE (PF) 0.25% 30 ML VIAL INTRAARTIC ONE; DEXAMETHASONE SOD PHOSPHATE 4 MG/ML 1 ML VIAL IV ONE; HYDROmorphone (PF) 1 MG/ML ONE; HYDROmorphone 0.5 MG/0.5 ML SYRINGE IVP PRN; LACTATED RINGERS 1,000 ML IV SCH; LIDOCAINE 1% INJ 10MG/ML (20 ML MDV) ONE; MIDAZOLAM 2 MG/2 ML VIAL ONE; NALOXONE 0.4 MG/ML 1 ML VIAL ONE; ONDANSETRON 4 MG/2 ML VIAL IVP ONE; PROPOFOL 10 MG/ML 20 ML VIAL IV ONE; fentaNYL (PF) 50 MCG/ML 2 ML AMP ONE
[2020-12-25 14:22] LABS: HCT 43.3 % (39.0-53.0); HGB 14.5 gm/dL (13.0-17.5); MCH 29.7 pg (25.0-35.0); MCHC 33.5 g/dL (31.0-37.0); MCV 88.5 fL (80.0-100.0); Mean Platelet Volume 8.9; Platelet Count 176 k/uL (150-450); RDW 13.2 % (11.5-15.5)
[2020-12-25 14:37] LABS: Potassium 4.1 mmol/L (3.5-5.1)
--- NOTE | 2020-12-25 16:22 | P.OP ---
Date of Procedure: 12/25/20 Preoperative Diagnosis: Internal derangement left knee Postoperative Diagnosis: 1. Medial meniscal tear left knee 2. 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 Reactive synovitis medial, lateral and suprapatellar compartments left knee Procedure(s) Performed: 1. Arthroscopic partial medial meniscectomy left knee 2. Arthroscopic chondroplasty patella left knee 3. Arthroscopic partial synovectomy medial, lateral and suprapatellar compartments left knee Anesthesia: EMILYA, local Surgeon: Junior Sterling Estimated Blood Loss (ml): 6 Pathology: none sent Condition: stable Disposition: PACU Indications for Procedure: 25-year-old patient seen with left knee pain. After treatment options were discussed he elected to proceed with arthroscopy. Operative Findings: see description of procedure Description of Procedure: Patient was taken to the operative suite. Patient underwent a general anesthetic by the department of anesthesia. Patient was given preoperative antibiotics. The left lower extremity was placed in a well-padded arthroscopic leg reyna. The left leg was prepped and draped in the normal sterile orthopedic fashion. A lateral parapatellar and suprapatellar incision was made. Trochars were inserted. Arthroscopy was initiated. Suprapatellar pouch revealed diffuse thick reactive synovitis. The patellofemoral joint appeared to articulate congruently. There with grade 1/2 chondromalacia with some diffuse osteochondral tears present. The scope was guided into the medial gutter. No loose bodies or plica were identified. The scope was then guided into the medial compartment. A medial parapatellar incision was made. Trocar inserted followed by probe. Radial tear in the midbody area of the meniscus. There was no significant chondromalacia present. There was thick reactive synovitis anteriorly. I performed a partial medial meniscectomy getting down to stable meniscal tissue. I performed a partial synovectomy decompressing the thick reactive synovitis. The residual meniscus was probed and found to be stable. There was good decompression of the synovitis. Scope and probe were then guided into the intercondylar notch. Cruciates were identified, probed and found to be stable. The scope and probe were then guided into lateral compartment. The lateral meniscus was probed and found to be stable. There was no significant chondromalacia present. There was some reactive synovitis anteriorly. I introduced a motorized shaver and performed a partial synovectomy. The shaver was removed. There was good decompression of the synovitis. The scope was in guided back into the suprapatellar compartment. I introduced a motorized shaver into the suprapatellar compartment. I performed a chondroplasty of the patella getting down to stable osteochondral tissue. I performed a partial synovectomy. Shaver was removed. There appeared be good decompression of the synovitis. The residual osteochondral surface of the patella appeared stable. Instruments were now removed from the joint. The joint was infiltrated with .25% Marcaine. Steri-Strips were applied to the portal sites. Sterile dressings were applied. The patient was placed into a DK hose. No tourniquet was utilized. The patient was awakened, transferred to a bed and taken to recovery stable satisfactory condition.
[2020-12-25 16:30] VITALS: TEMP 96.7
[2020-12-25 17:06] VITALS: RESP 16
[2020-12-25 17:31] VITALS: BP 158/93; PULSE 85
== END | disposition home or self-care (01) ==
LOC: OR 13:41
PROVIDERS: ATTEND Orthopaedic Surgery
DX: M23.232 Derangement of other medial meniscus due to old tear or injury, left knee (principal); M65.862 Other synovitis and tenosynovitis, left lower leg; M22.42 Chondromalacia patellae, left knee; F31.9 Bipolar disorder, unspecified; F90.9 Attention-deficit hyperactivity disorder, unspecified type; F17.210 Nicotine dependence, cigarettes, uncomplicated; Z98.890 Other specified postprocedural states
CPT/HCPCS: 80051; 85027; 29881; J2250; J1100; J2310; J0690; J2405; J2001; J3010; J1170; J2704

== ENCOUNTER → 2021-04-16 | Outpatient (CLI) | payer OTHER | END | disposition home or self-care (01) | LOC: LABWHC1 08:59 | PROVIDERS: ATTEND Family Medicine | DX: Z20.822 Contact with and (suspected) exposure to COVID-19 (principal) | CPT/HCPCS: U0003; C9803; U0005 ==

== ENCOUNTER 2021-07-21 17:33 | Emergency (ER) | payer OTHER ==
[2021-07-21 17:43] VITALS: TEMP 97.6
[2021-07-21] MEDS ORDERED: ONDANSETRON 4 MG/2 ML VIAL IVP STA (18:43)
[2021-07-21] MEDS ORDERED: SODIUM CHLORIDE 0.9% 1,000 ML IV STA (18:43)
[2021-07-21] MEDS ORDERED: FAMOTIDINE 20 MG/2 ML VIAL IV STA (18:46)
--- NOTE | 2021-07-21 18:46 | ED ---
Nausea/Vomiting/Diarrhea HPI - General Chief complaint: Nausea/Vomiting/Diarrhea Stated complaint: Nausea,Dizziness Time Seen by Provider: 07/21/21 18:39 Source: patient, RN notes reviewed, old records reviewed Mode of arrival: ambulatory Limitations: no limitations - History of Present Illness Initial comments: 25-year-old white male presents to the emergency room with complaints of nausea and vomiting for 3 days. He denies abdominal pain, fevers or diarrhea. He denies any sick contacts. He denies any medications on a daily basis. He states he does not use any illicit drugs or drink daily. He does smoke 5-6 cigarettes a day. MD complaint: nausea, vomiting -: days(s) (3) Description of Vomiting: food contents, watery, bilious Associated Abdominal Pain: Yes Location: epigastric Radiation: none Severity scale (1-10): 3 Quality: sharp Consistency: intermittent Improves with: none Worsens with: none Associated Symptoms: nausea/vomiting - Related Data Home Medications Medication Instructions Recorded Confirmed Paliperidone [Invega] 6 mg PO HS 12/23/20 12/25/20 Previous Rx's Medication Instructions Recorded HYDROcodone/APAP 5-325MG [[place] 1 tab PO Q6HR PRN #14 tab 12/25/20 5-325] Famotidine [Pepcid] 20 mg PO DAILY 28 Days #28 tablet 07/21/21 Allergies Allergy/AdvReac Type Severity Reaction Status Date / Time red 40 Allergy Anaphylaxis Uncoded 07/21/21 17:43 Review of Systems ROS Statement: Those systems with pertinent positive or pertinent negative responses have been documented in the HPI. ROS Other: All systems not noted in ROS Statement are negative. Past Medical History Past Medical History: Seizure Disorder Additional Past Medical History / Comment(s): seizure x1 after taking drugs in 2012. "PATIENT STATES HE HAS BEEN OFF MED FOR SEIZURES FOR YEARS" History of Any Multi-Drug Resistant Organisms: None Reported Past Surgical History: Appendectomy, Orthopedic Surgery Additional Past Surgical History / Comment(s): rt hand 2012, rt hand 2018 Past Anesthesia/Blood Transfusion Reactions: No Reported Reaction Past Psychological History: ADD/ADHD, Anxiety, Bipolar, Depression, Schizophrenia Smoking Status: Current every day smoker Past Alcohol Use History: Occasional Past Drug Use History: Marijuana - Past Family History Mother Family Medical History: No Reported History General Exam Limitations: no limitations General appearance: alert, in no apparent distress Head exam: Present: atraumatic, normocephalic, normal inspection Eye exam: Present: normal appearance, PERRL, EOMI. Absent: scleral icterus, conjunctival injection, periorbital swelling Pupils: Present: normal accommodation ENT exam: Present: normal exam, normal oropharynx, mucous membranes moist Neck exam: Present: normal inspection, full ROM. Absent: tenderness, meningismus, lymphadenopathy Respiratory exam: Present: normal lung sounds bilaterally. Absent: respiratory distress, wheezes, rales, rhonchi, stridor Cardiovascular Exam: Present: tachycardia GI/Abdominal exam: Present: soft, normal bowel sounds. Absent: distended, tenderness, guarding, rebound, rigid Extremities exam: Present: normal inspection, full ROM, normal capillary refill. Absent: tenderness, pedal edema, joint swelling, calf tenderness Back exam: Present: normal inspection, full ROM. Absent: tenderness, CVA tenderness (R), CVA tenderness (L), muscle spasm, paraspinal tenderness, vertebral tenderness, rash noted Neurological exam: Present: alert, oriented X3, CN II-XII intact Psychiatric exam: Present: normal affect, normal mood Skin exam: Present: warm, dry, intact, normal color. Absent: rash Course Vital Signs 07/21/21 07/21/21 17:39 20:24 Temperature 97.6 F Pulse Rate 110 H 98 Respiratory 20 18 Rate Blood Pressure 134/89 131/80 O2 Sat by Pulse 99 98 Oximetry Medical Decision Making - Medical Decision Making Abdominal x-ray shows nondilated bowel loops with a nonobstructive pattern. There is no pathologic calcifications. There is no pneumoperitoneum and right lower quadrant surgical clips are seen. There is no acute process. There is no leukocytosis, electrolytes are unremarkable. Covid test is negative. He has been afebrile. He described his pain as epigastric in nature. His abdomen is soft and nontender. Patient is feeling better after the IV fluids and medications and is ready to go home. He states he is unable to provide a urine. He'll be discharged home with Zofran and Pepcid directed to follow up with his primary care doctor, return to the emergency room with any new or worsening symptoms including fever or increased pain. Patient is agreeable to this plan of care. Case discussed with Dr. Wyman - Lab Data Result diagrams: 07/21/21 18:56 09/07/21 18:56 Lab Results 07/21/21 07/21/21 07/21/21 Range/Units 18:56 18:56 18:56 WBC 5.4 (3.8-10.6) k/uL RBC 5.14 (4.30-5.90) m/uL Hgb 15.5 (13.0-17.5) gm/dL Hct 45.3 (39.0-53.0) % MCV 88.3 (80.0-100.0) fL MCH 30.3 (25.0-35.0) pg MCHC 34.3 (31.0-37.0) g/dL RDW 13.5 (11.5-15.5) % Plt Count 222 (150-450) k/uL MPV 9.3 Neutrophils % 48 % Lymphocytes % 34 % Monocytes % 6 % Eosinophils % 9 % Basophils % 1 % Neutrophils # 2.6 (1.3-7.7) k/uL Lymphocytes # 1.8 (1.0-4.8) k/uL Monocytes # 0.3 (0-1.0) k/uL Eosinophils # 0.5 (0-0.7) k/uL Basophils # 0.0 (0-0.2) k/uL Sodium 139 (137-145) mmol/L Potassium 3.9 (3.5-5.1) mmol/L Chloride 108 H (98-107) mmol/L Carbon Dioxide 23 (22-30) mmol/L Anion Gap 8 mmol/L BUN 12 (9-20) mg/dL Creatinine 0.91 (0.66-1.25) mg/dL Est GFR (CKD-EPI)AfAm >90 (>60 ml/min/1.73 sqM) Est GFR (CKD-EPI)NonAf >90 (>60 ml/min/1.73 sqM) Glucose 100 H (74-99) mg/dL Calcium 9.4 (8.4-10.2) mg/dL Total Bilirubin 0.3 (0.2-1.3) mg/dL AST 28 (17-59) U/L ALT 26 (4-49) U/L Alkaline Phosphatase 95 (38-126) U/L Total Protein 7.3 (6.3-8.2) g/dL Albumin 4.3 (3.5-5.0) g/dL Amylase 54 (30-110) U/L Lipase 57 (23-300) U/L Coronavirus (PCR) Not Detected (Not Detectd) Disposition Clinical Impression: Nausea and vomiting Disposition: HOME SELF-CARE Condition: Good Instructions (If sedation given, give patient instructions): Acute Nausea and Vomiting (ED) Additional Instructions: Increase your fluid intake. Take the medication as prescribed, take Zofran as needed for nausea follow-up with your primary care doctor within the next week. Return to the emergency room with any new or worsening symptoms including pain or fever. Prescriptions: Famotidine [Pepcid] 20 mg PO DAILY 28 Days #28 tablet Is patient prescribed a controlled substance at d/c from ED?: No Referrals: Raymundo Linton MD [Primary Care Provider] - 1-2 days Time of Disposition: 20:17
[2021-07-21 19:08] LABS: Basophils % (A) 1 %; Eosinophils # (A) 0.5 k/uL (0-0.7); Eosinophils % (A) 9 %; HCT 45.3 % (39.0-53.0); HGB 15.5 gm/dL (13.0-17.5); Lymphocytes # (A) 1.8 k/uL (1.0-4.8); Lymphocytes % (A) 34 %; MCH 30.3 pg (25.0-35.0); MCHC 34.3 g/dL (31.0-37.0); MCV 88.3 fL (80.0-100.0); Mean Platelet Volume 9.3; Monocytes # (A) 0.3 k/uL (0-1.0); Monocytes % (A) 6 %; Neutrophils # (A) 2.6 k/uL (1.3-7.7); Neutrophils % (A) 48 %; Platelet Count 222 k/uL (150-450); RBC 5.14 m/uL (4.30-5.90); RDW 13.5 % (11.5-15.5); WBC 5.4 k/uL (3.8-10.6)
--- NOTE | 2021-07-21 19:17 | XR ---
EXAM: Abdomen radiograph. HISTORY: Pain. TECHNIQUE: Upright AP view. COMPARISON: None available. FINDINGS: There are nondilated bowel loops with a nonobstructive pattern. There are no pathologic calcification s. No acute osseous abnormality seen. No pneumoperitoneum. Right lower quadrant surgical clips seen. IMPRESSION: No acute process.
[2021-07-21 19:18] LABS: ALT 26 U/L (4-49); AST 28 U/L (17-59); African American GFR (CKD) >90 (>60 ml/min/1.73 sqM); Albumin 4.3 g/dL (3.5-5.0); Alkaline Phosphatase 95 U/L (38-126); Amylase 54 U/L (30-110); Anion Gap 8 mmol/L; Blood Urea Nitrogen 12 mg/dL (9-20); Calcium 9.4 mg/dL (8.4-10.2); Carbon Dioxide 23 mmol/L (22-30); Chloride 108 mmol/L (98-107); Glucose 100 mg/dL (74-99); Lipase 57 U/L (23-300); Non-African American GFR(CKD) >90 (>60 ml/min/1.73 sqM); Potassium 3.9 mmol/L (3.5-5.1); Sodium 139 mmol/L (137-145); Total Bilirubin 0.3 mg/dL (0.2-1.3); Total Protein 7.3 g/dL (6.3-8.2)
[2021-07-21] MEDS ORDERED: ONDANSETRON 4 MG ODT STARTER PACK 2 TAB BTL PO STA (20:18)
[2021-07-21 20:37] VITALS: BP 131/80; PULSE 98; RESP 18
== END 2021-07-21 20:25 | disposition home or self-care (01) ==
LOC: EC 17:33
DX: R11.2 Nausea with vomiting, unspecified (principal); G40.909 Epilepsy, unspecified, not intractable, without status epilepticus; F41.9 Anxiety disorder, unspecified; F31.9 Bipolar disorder, unspecified; F20.9 Schizophrenia, unspecified; F90.9 Attention-deficit hyperactivity disorder, unspecified type; F17.200 Nicotine dependence, unspecified, uncomplicated; F12.90 Cannabis use, unspecified, uncomplicated; Z20.822 Contact with and (suspected) exposure to COVID-19; Z90.49 Acquired absence of other specified parts of digestive tract
CPT/HCPCS: 99284; 96374; 96375; 96361; 80053; 82150; 83690; 85025; 87635; 74018; J2405

== ENCOUNTER → 2023-09-09 | Outpatient (CLI) | payer OTHER ==
--- NOTE | 2023-09-10 12:02 | CA ---
Transthoracic Echo Report Name: Gerardo Olivas Age: 28 Gender: M : 1995 Exam Date: 09/09/2023 16:39 Exam Location: [place] Echo Ht (in): 72 Wt (lb): 280 Ordering Physician: Raymundo Linton MD Attending/Referring Phys: Royer [employer] Chitra Guillen [facility] Procedure CPT: Indications: R07.9 Chest pain R06.02 Shortness of breath Cardiac Hx: Technical Quality: Fair Contrast 1: Total Dose (mL): Contrast 2: Total Dose (mL): MEASUREMENTS (Male / Female) Normal Values 2D ECHO LV Diastolic Diameter PLAX 4.4 cm 4.2 - 5.9 / 3.9 - 5.3 cm LV Systolic Diameter PLAX 3.3 cm IVS Diastolic Thickness 1.1 cm 0.6 - 1.0 / 0.6 - 0.9 cm LVPW Diastolic Thickness 1.1 cm 0.6 - 1.0 / 0.6 - 0.9 cm LV Relative Wall Thickness 0.5 Ascending Aorta Diameter 2.5 cm M-MODE Aortic Root Diameter MM 2.7 cm LA Systolic Diameter MM 3.8 cm LA Ao Ratio MM 1.4 AV Cusp Separation MM 2.3 cm DOPPLER AV Peak Velocity 100.8 cm/s AV Peak Gradient 4.1 mmHg AV Mean Velocity 82.8 cm/s AV Mean Gradient 2.9 mmHg AV Velocity Time Integral 20.2 cm LVOT Peak Velocity 90.4 cm/s LVOT Peak Gradient 3.3 mmHg LVOT Velocity Time Integral 16.8 cm Mitral E Point Velocity 54.6 cm/s Mitral A Point Velocity 62.8 cm/s Mitral E to A Ratio 0.9 MV Deceleration Time 170.6 ms LV E' Lateral Velocity 12.8 cm/s Mitral E to LV E' Lateral Ratio 4.3 LV E' Septal Velocity 9.3 cm/s Mitral E to LV E' Septal Ratio 5.9 Right Atrial Pressure 3.0 mmHg FINDINGS Left Ventricle Mildly increased left ventricular wall thickness. Left ventricular cavity size normal. Low Normal left ventricular systolic function with no obvious regional wall motion abnormalities. Left ventricular ejection fraction is estimated at 50-55%. Right Ventricle Mild right ventricular dilatation. Right Atrium Normal right atrial size. Left Atrium Normal left atrial size. Mitral Valve Structurally normal mitral valve. Trace mitral regurgitation. Aortic Valve Trileaflet aortic valve. No aortic valve stenosis or regurgitation. Tricuspid Valve Structurally normal tricuspid valve. No tricuspid regurgitation. Pulmonic Valve Pulmonic valve not well visualized. Pericardium No pericardial effusion. Aorta Normal size aortic root and proximal ascending aorta. CONCLUSIONS Left ventricular ejection fraction 50-55% Mildly increased left ventricular wall thickness Trace mitral regurgitation No pericardial effusion Previewed by: Dr. Raymundo Bran DO (Electronically Signed) Final Date: 10 September 2023 12:01
== END | disposition home or self-care (01) ==
LOC: RADECHMAIN 16:16
PROVIDERS: ATTEND Family Medicine
DX: I34.0 Nonrheumatic mitral (valve) insufficiency (principal); I49.8 Other specified cardiac arrhythmias; I51.7 Cardiomegaly; R07.9 Chest pain, unspecified; R06.02 Shortness of breath
CPT/HCPCS: 93306

== ENCOUNTER → 2023-09-16 | Outpatient (CLI) | payer OTHER ==
--- NOTE | 2023-09-16 12:26 | CA ---
Exercise Stress Test Report Name: Gerardo Olivas Exam Date: 09/16/2023 09:26 Exam Location: [place] Stress Ht (in): 72 Wt (lb): 176 BSA: 2.02 Ordering Phys: Raymundo Linton MD Referring Phys: PAUL, Technologist: Hansel Queen Age: 28 Gender: M : 1995 Procedure CPT: Indications: R07.9 CHEST PAIN R06.02 SOB WITH EXERTION ICD-10 Codes: Patient History: Medications: Meds past 24 hrs: Pretest Chest Pain: STRESS TEST Skip Protocol Exercise Duration (min:sec): 06:[address] Depressions (mm): Angina Score: Tobar Score: Resting HR (bpm): 114 Peak HR (bpm): 169 Resting BP (mmHg): 117 / 79 Peak BP (mmHg): 155 / 78 MPHR: 192 Target HR: 163 % MPHR: 88 METS: 8.0 Total Dose: Peak Dose: Atropine: Double Product: 53768 BP Response: Stress Termination: Reached target heart rate Stress Symptoms: CHEST PAIN, VERTIGO Stress Summary: The patient's target heart rate was achieved, The hemodynamic response to exercise was normal ECG ANALYSIS Resting ECG: Sinus rhythm. Normal conduction. No arrhythmias. Normal repolarization. Stress ECG: No ECG evidence of ischemia with exercise. CONCLUSIONS 1. Decrease exercise tolerance 2. Chest discomfort during exercise for unclear etiology 3. Normal electrocardiographic stress testing with no evidence of stress induced ischemia Dr. Javid Dorantes MD (Electronically Signed) Final Date: 16 September 2023 12:25
== END | disposition home or self-care (01) ==
LOC: RADNMMAIN 08:58
PROVIDERS: ATTEND Family Medicine
DX: R07.9 Chest pain, unspecified (principal); R06.02 Shortness of breath
CPT/HCPCS: 93017